=== PATIENT | male | born 1990 | race Caucasian/White ===

== ENCOUNTER 2017-01-03 11:15 | Emergency (ER) | payer SELFPAY ==
[2017-01-03] MEDS ORDERED: Albuterol/Ipratropium 3.0-0.5 MG/3 ML Neb Soln NEB ONE (11:24)
--- NOTE | 2017-01-03 11:24 | EDM.PDOC ---
ED HPI GENERAL MEDICAL PROBLEM - General Stated Complaint: SHORTNESS OF BREATH Time Seen by Provider: 01/03/17 11:20 - History of Present Illness INITIAL COMMENTS - FREE TEXT/NARRATIVE: HISTORY AND PHYSICAL: History of present illness: Patient's a 26-year-old white male with no significant past medical history presents with concern of right-sided chest pain and difficulty breathing he denies fever chills nausea vomiting palpitations or other concern he does have some anxiety related to a family history of lung cancer he denies history of asthma COPD or any other heart or lung problems Review of systems: As per history of present illness and below otherwise all systems reviewed and negative. Past medical history: As per history of present illness and as reviewed below otherwise noncontributory. Surgical history: As per history of present illness and as reviewed below otherwise noncontributory. Social history: No reported history of drug or alcohol abuse. Family history: As per history of present illness and as reviewed below otherwise noncontributory. Physical exam: HEENT: Atraumatic, normocephalic, pupils reactive, negative for conjunctival pallor or scleral icterus, mucous membranes moist, throat clear, neck supple, nontender, trachea midline. Lungs: Clear to auscultation, breath sounds equal bilaterally, chest nontender. Heart: S1S2, regular, negative for clicks, rubs, or JVD. Abdomen: Soft, nondistended, nontender. Negative for masses or hepatosplenomegaly. Negative for costovertebral tenderness. Pelvis: Stable nontender. Genitourinary: Deferred. Rectal: Deferred. Extremities: Atraumatic, negative for cords or calf pain. Neurovascular unremarkable. Neuro: Awake, alert, oriented. Cranial nerves II through XII unremarkable. Cerebellum unremarkable. Motor and sensory unremarkable throughout. Exam nonfocal. Diagnostics: Chest x-ray EKG Therapeutics: Albuterol ipratropium nebulizer Impression: #1 right-sided chest pain (atypical) #2 dyspnea Definitive disposition and diagnosis as appropriate pending reevaluation and review of above. - Related Data Allergies Allergy/AdvReac Type Severity Reaction Status Date / Time No Known Allergies Allergy Verified 01/03/17 11:38 Home Meds: Home Meds . [No Known Home Meds] 01/03/17 [History] ED ROS GENERAL - Review of Systems Review Of Systems: ROS reveals no pertinent complaints other than HPI. ED EXAM, GENERAL - Physical Exam Exam: See Below (See dictation) Course - Vital Signs Last Recorded V/S: Last Vital Signs Temp 36.9 C 01/03/17 11:29 Pulse 95 01/03/17 11:29 Resp 18 01/03/17 11:29 BP 133/84 01/03/17 11:29 Pulse Ox 98 01/03/17 11:29 - Orders/Labs/Meds Orders: Active Orders 24 hr Category Date Time Status EKG Documentation Completion [RC] STAT Care 01/03/17 11:24 Active RT Aerosol Therapy [RC] ASDIRECTED Care 01/03/17 11:25 Active Meds: Medications Discontinued Medications Generic Name Dose Route Start Last Admin Trade Name Freq PRN Reason Stop Dose Admin Albuterol/Ipratropium 3 ml 01/03/17 11:24 01/03/17 11:46 Duoneb 3.0-0.5 Mg/3 Ml NEB 01/03/17 11:25 3 ml ONETIME ONE Administration Departure - Departure Time of Disposition: 13:00 Disposition: Home, Self-Care 01 Condition: Good Clinical Impression: Atypical chest pain, Dyspnea - Discharge Information Referrals: PCP,None [Primary Care Provider] - Additional Instructions: The following information is given to patients seen in the emergency department who are being discharged to home. This information is to outline your options for follow-up care. We provide all patients seen in our emergency department with a follow-up referral. The need for follow-up, as well as the timing and circumstances, are variable depending upon the specifics of your emergency department visit. If you don't have a primary care physician on staff, we will provide you with a referral. We always advise you to contact your personal physician following an emergency department visit to inform them of the circumstance of the visit and for follow-up with them and/or the need for any referrals to a consulting specialist. The emergency department will also refer you to a specialist when appropriate. This referral assures that you have the opportunity for followup care with a specialist. All of these measure are taken in an effort to provide you with optimal care, which includes your followup. Under all circumstances we always encourage you to contact your private physician who remains a resource for coordinating your care. When calling for followup care, please make the office aware that this follow-up is from your recent emergency room visit. If for any reason you are refused follow-up, please contact the [facility] emergency department at and asked to speak to the emergency department charge nurse. MARIE [facility] [address] [place] [id number] Albuterol as prescribed Motrin or Tylenol as directed follow-up primary care and /or clinical bulbous discussed return as needed as discussed - My Orders Last 24 Hours: My Active Orders 01/03/17 11:24 EKG Documentation Completion [RC] STAT 01/03/17 11:25 RT Aerosol Therapy [RC] ASDIRECTED - Assessment/Plan Last 24 Hours: My Active Orders 01/03/17 11:24 EKG Documentation Completion [RC] STAT 01/03/17 11:25 RT Aerosol Therapy [RC] ASDIRECTED
--- NOTE | 2017-01-03 12:30 | CR ---
EXAMINATION: Two-view chest (PA and Lateral views). HISTORY: Shortness of breath. FINDINGS: The trachea is midline. The cardiomediastinal silhouette is within normal limits. No pulmonary infilt rates, effusions or pneumothorax. Osseous structures appear unremarkable. IMPRESSION: No acute cardiopulmonary process.
[2017-01-03 13:08] VITALS: BP 121/69
== END 2017-01-03 13:07 | disposition home or self-care (01) ==
LOC: MW.ED 11:15
DX: R07.89 Other chest pain (principal); R06.00 Dyspnea, unspecified
CPT/HCPCS: 71020; 71020-26; 93005; 94664; 99282; 99283-25

== ENCOUNTER 2017-01-27 03:43 | Emergency (ER) | payer SELFPAY ==
[2017-01-27] MEDS ORDERED: Acetaminophen/oxyCODONE 325-10 MG Tab PO ONE (04:07)
[2017-01-27] MEDS ORDERED: Amoxicillin 500 MG Cap PO ONE (04:08)
[2017-01-27 04:09] VITALS: BP 138/80
--- NOTE | 2017-01-27 04:12 | EDM.PDOC ---
ED HPI GENERAL MEDICAL PROBLEM - General Chief Complaint: General Stated Complaint: ABSCESSED TOOTH Time Seen by Provider: 01/27/17 04:08 Source of Information: Reports: Patient, RN - History of Present Illness INITIAL COMMENTS - FREE TEXT/NARRATIVE: recent toothache. - Related Data Allergies Allergy/AdvReac Type Severity Reaction Status Date / Time No Known Allergies Allergy Verified 01/27/17 03:54 Home Meds: Home Meds . [No Known Home Meds] 01/03/17 [History] Past Medical History - Past Health History Medical/Surgical History: Denies Medical/Surgical History - Infectious Disease History Infectious Disease History: Reports: Chicken Pox Social & Family History - Family History Family Medical History: Noncontributory - Tobacco Use Smoking Status *Q: Current Every Day Smoker Years of Tobacco use: 15 Packs/Tins Daily: 1 Used Tobacco, but Quit: No Second Hand Smoke Exposure: No - Caffeine Use Caffeine Use: Reports: Coffee - Recreational Drug Use Recreational Drug Use: No ED ROS GENERAL - Review of Systems Review Of Systems: See Below Constitutional: Denies: Fever Cardiovascular: Denies: Chest Pain GI/Abdominal: Denies: Vomiting ED EXAM, GENERAL - Physical Exam Exam: See Below Free Text/Narrative:: alert tooth number 13 with marked decay and tenderness no airway compromise Course - Orders/Labs/Meds Orders: Active Orders 24 hr Category Date Time Status Acetaminophen/oxyCODONE [Percocet 325-10 MG] Med 01/27/17 04:07 Once 1 tab PO ONETIME ONE Amoxicillin [Amoxil] Med 01/27/17 04:08 Once 500 mg PO ONETIME ONE Medication Orders Amoxicillin (Amoxil) 500 mg PO ONETIME ONE Stop: 01/27/17 04:09 Oxycodone/Acetaminophen (Percocet 325-10 Mg) 1 tab PO ONETIME ONE Stop: 01/27/17 04:08 Meds: Medications Generic Name Dose Route Start Last Admin Trade Name Freq PRN Reason Stop Dose Admin Amoxicillin 500 mg 01/27/17 04:08 Amoxil PO 01/27/17 04:09 ONETIME ONE Oxycodone/Acetaminophen 1 tab 01/27/17 04:07 Percocet 325-10 Mg PO 01/27/17 04:08 ONETIME ONE Departure - Departure Time of Disposition: 04:10 Disposition: Home, Self-Care 01 Condition: Fair Clinical Impression: Pain, dental - Discharge Information Referrals: PCP,None [Primary Care Provider] - Additional Instructions: percocet is for short term use as it may be habit forming, sedating and constipating do not use tylenol with percocet see a dentist - My Orders Last 24 Hours: My Active Orders 01/27/17 04:07 Acetaminophen/oxyCODONE [Percocet 325-10 MG] 1 tab PO ONETIME ONE 01/27/17 04:08 Amoxicillin [Amoxil] 500 mg PO ONETIME ONE - Assessment/Plan Last 24 Hours: My Active Orders 01/27/17 04:07 Acetaminophen/oxyCODONE [Percocet 325-10 MG] 1 tab PO ONETIME ONE 01/27/17 04:08 Amoxicillin [Amoxil] 500 mg PO ONETIME ONE
== END 2017-01-27 04:45 | disposition home or self-care (01) ==
LOC: MW.ED 03:43
DX: K08.89 Other specified disorders of teeth and supporting structures (principal); F17.210 Nicotine dependence, cigarettes, uncomplicated
CPT/HCPCS: 99282; A9270; 99281

== ENCOUNTER 2017-03-25 00:44 | Emergency (ER) | payer SELFPAY ==
[2017-03-25] MEDS ORDERED: Sodium Chloride 0.9% 2.5 ML Syringe FLUSH PRN (01:10)
[2017-03-25] MEDS ORDERED: methylPREDNISolone Sodium Succinate 125 MG/2 ML SDV IVPUSH ONE (01:10)
[2017-03-25] MEDS ORDERED: Sodium Chloride 0.9% 10 ML Syringe FLUSH PRN (01:10)
[2017-03-25] MEDS ORDERED: Ketorolac 30 MG/ML SDV IVPUSH ONE (01:10)
--- NOTE | 2017-03-25 01:15 | EDM.PDOC ---
ED HPI GENERAL MEDICAL PROBLEM - General Chief Complaint: Back Pain or Injury Stated Complaint: LOWER BACK PAIN Time Seen by Provider: 03/25/17 01:00 - History of Present Illness INITIAL COMMENTS - FREE TEXT/NARRATIVE: HISTORY AND PHYSICAL: History of present illness: The patient is a 27-year-old male who works doing a lot of lifting and was at work this evening when he bent over and felt sudden pain in his lower lumbar spine and thought he felt a "pop like" sensation. The patient has a history of herniated disks in the past for which he was treated with pain meds physical therapy and no surgical intervention. He has been doing well for the last 2 years with respect to that injury. He also has a history of a trauma several years ago but has been doing well from that perspective as well. The patient did not fall or lose his balance tonight he just bent over and felt the pain. Early in the day he had no systemic complaints and he has no abdominal pain no neurosensory changes in his legs no bowel or bladder disturbances and received no pain medication prior to coming here. The patient says the pain is localized in the lower aspect of his lumbar back and does not radiate to his butt or his legs. The patient did not pass out or black out and has no upper back flank pain or neck pain. The patient does admit that with his job involving lifting and moving things he doesn't always practice good body mechanics and he likely overuses his back. Review of systems: As per history of present illness and below otherwise all systems reviewed and negative. Past medical history: As per history of present illness and as reviewed below otherwise noncontributory. Surgical history: As per history of present illness and as reviewed below otherwise noncontributory. Social history: No reported history of drug or alcohol abuse. Family history: As per history of present illness and as reviewed below otherwise noncontributory. Physical exam: Gen.: Well-developed well-nourished man who is mildly overweight and is uncomfortable with movement But can move in the bed without difficulty HEENT: Atraumatic, normocephalic, negative for conjunctival pallor or scleral icterus, mucous membranes moist, throat clear, neck supple, nontender, trachea midline. Lungs: Clear to auscultation, breath sounds equal bilaterally, chest nontender. Heart: S1S2, regular rate and rhythm no overt murmurs Abdomen: Soft, nondistended, nontender. Negative for masses or hepatosplenomegaly. Negative for costovertebral tenderness. Pelvis: Stable nontender. Genitourinary: Deferred. Rectal: Deferred. Extremities: Atraumatic, negative for cords or calf pain. Neurovascular unremarkable. Full range of motion without defects or deficits Neuro: Awake, alert, oriented. Cranial nerves II through XII unremarkable. Cerebellum unremarkable. Motor and sensory unremarkable throughout. Exam nonfocal. Dorsi and plantar flexion is intact 5/5 inclusive of the great toe inversion and eversion of the feet is intact Back: There are no midline step-offs in his defects of the thoracic or lumbar spine no posterior pelvis tenderness and on palpation it is difficult to reproduce the pain at all. There is no soft tissue swelling or skin changes appreciated. Diagnostics: CT scan of the lumbar spine Therapeutics: IV, Toradol, Solu-Medrol Zofran Dilaudid Patient says she is feeling much improved and I'll give her prescriptions that he can fill later as he would prefer not to use [facility]. I told him that he needs to follow-up with his occupational health person at his job as his injury occurred at work. Advised on reasons to return Impression: Acute lumbar back pain with history of same and disc disease Definitive disposition and diagnosis as appropriate pending reevaluation and review of above. lower back Pain Score (Numeric/FACES): 8 - Related Data Allergies Allergy/AdvReac Type Severity Reaction Status Date / Time No Known Allergies Allergy Verified 03/25/17 01:00 Home Meds: Home Meds . [No Known Home Meds] 01/03/17 [History] Past Medical History - Past Health History Medical/Surgical History: Denies Medical/Surgical History HEENT History: Reports: None Cardiovascular History: Reports: None Respiratory History: Reports: None Gastrointestinal History: Reports: None Genitourinary History: Reports: None Musculoskeletal History: Reports: None Neurological History: Reports: None Psychiatric History: Reports: None Endocrine/Metabolic History: Reports: None Hematologic History: Reports: None Immunologic History: Reports: None Oncologic (Cancer) History: Reports: None Dermatologic History: Reports: None - Infectious Disease History Infectious Disease History: Reports: None - Past Surgical History Head Surgeries/Procedures: Reports: None Social & Family History - Family History Family Medical History: Noncontributory - Tobacco Use Smoking Status *Q: Current Every Day Smoker Years of Tobacco use: 15 Packs/Tins Daily: 0.4 Used Tobacco, but Quit: No Second Hand Smoke Exposure: No - Caffeine Use Caffeine Use: Reports: Coffee, Energy Drinks - Recreational Drug Use Recreational Drug Use: No ED ROS GENERAL - Review of Systems Review Of Systems: ROS reveals no pertinent complaints other than HPI. ED EXAM, GENERAL - Physical Exam Exam: See Below (See dictation) Course - Vital Signs Last Recorded V/S: Last Vital Signs Temp 36.1 C 03/25/17 01:00 Pulse 102 H 03/25/17 01:00 Resp 18 03/25/17 01:00 BP 117/83 03/25/17 01:00 Pulse Ox 98 03/25/17 01:00 - Orders/Labs/Meds Orders: Active Orders 24 hr Category Date Time Status Lumbar Spine wo Cont [CT] Stat Exams 03/25/17 01:10 Taken Sodium Chloride 0.9% [Saline Flush] Med 03/25/17 01:10 Active 10 ml FLUSH ASDIRECTED PRN Sodium Chloride 0.9% [Saline Flush] Med 03/25/17 01:10 Active 2.5 ml FLUSH ASDIRECTED PRN Saline Lock Insert [OM.PC] Stat Oth 03/25/17 01:10 Ordered Medication Orders Sodium Chloride (Saline Flush) 10 ml FLUSH ASDIRECTED PRN PRN Reason: Keep Vein Open Last Admin: 03/25/17 01:33 Dose: 10 ml Sodium Chloride (Saline Flush) 2.5 ml FLUSH ASDIRECTED PRN PRN Reason: Keep Vein Open Last Admin: 03/25/17 01:34 Dose: 2.5 ml Meds: Medications Generic Name Dose Route Start Last Admin Trade Name Freq PRN Reason Stop Dose Admin Sodium Chloride 10 ml 03/25/17 01:10 03/25/17 01:33 Saline Flush FLUSH 10 ml ASDIRECTED PRN Administration Keep Vein Open Sodium Chloride 2.5 ml 03/25/17 01:10 03/25/17 01:34 Saline Flush FLUSH 2.5 ml ASDIRECTED PRN Administration Keep Vein Open Discontinued Medications Generic Name Dose Route Start Last Admin Trade Name Freq PRN Reason Stop Dose Admin Hydromorphone HCl 1 mg 03/25/17 01:16 03/25/17 01:32 Dilaudid IVPUSH 03/25/17 01:17 1 mg ONETIME ONE Administration Ketorolac Tromethamine 30 mg 03/25/17 01:10 03/25/17 01:32 Toradol IVPUSH 03/25/17 01:11 30 mg ONETIME ONE Administration Methylprednisolone Sodium Succinate 125 mg 03/25/17 01:10 03/25/17 01:32 Solu-Medrol IVPUSH 03/25/17 01:11 125 mg ONETIME ONE Administration Ondansetron HCl 4 mg 03/25/17 01:33 03/25/17 01:36 Zofran IVPUSH 03/25/17 01:34 4 mg ONETIME ONE Administration Departure - Departure Time of Disposition: 02:40 Disposition: Home, Self-Care 01 Condition: Good Clinical Impression: Acute low back pain Qualifiers: Back pain laterality: bilateral Sciatica presence: without sciatica Qualified Code(s): M54.5 - Low back pain - Discharge Information Referrals: PCP,None [Primary Care Provider] - Forms: ED Department Discharge Additional Instructions: The following information is given to patients seen in the emergency department who are being discharged to home. This information is to outline your options for follow-up care. We provide all patients seen in our emergency department with a follow-up referral. The need for follow-up, as well as the timing and circumstances, are variable depending upon the specifics of your emergency department visit. If you don't have a primary care physician on staff, we will provide you with a referral. We always advise you to contact your personal physician following an emergency department visit to inform them of the circumstance of the visit and for follow-up with them and/or the need for any referrals to a consulting specialist. The emergency department will also refer you to a specialist when appropriate. This referral assures that you have the opportunity for followup care with a specialist. All of these measure are taken in an effort to provide you with optimal care, which includes your followup. Under all circumstances we always encourage you to contact your private physician who remains a resource for coordinating your care. When calling for followup care, please make the office aware that this follow-up is from your recent emergency room visit. If for any reason you are refused follow-up, please contact the [facility] emergency department at and ask to speak to the emergency department charge nurse. MARIE [facility] Primary care- Internal Medicine and Family [facility] [address] [place] [address] Please use medications as prescribed. Do not Muscle relaxer, Norflex, and the Putnam. Try to use the Putnam mostly at sleep time. If you use the Putnam or Norflex please only take them when you're at home as they may make you drowsy or sleepy. Rest and try to do all activities very slowly. Apply heat or ice to the area as tolerated and needed. Please contact your employer for follow-up with occupational health with respect to your work. Return to ER as needed and as discussed - My Orders Last 24 Hours: My Active Orders 03/25/17 01:10 Lumbar Spine wo Cont [CT] Stat Sodium Chloride 0.9% [Saline Flush] 10 ml FLUSH ASDIRECTED PRN Sodium Chloride 0.9% [Saline Flush] 2.5 ml FLUSH ASDIRECTED PRN Saline Lock Insert [OM.PC] Stat - Assessment/Plan Last 24 Hours: My Active Orders 03/25/17 01:10 Lumbar Spine wo Cont [CT] Stat Sodium Chloride 0.9% [Saline Flush] 10 ml FLUSH ASDIRECTED PRN Sodium Chloride 0.9% [Saline Flush] 2.5 ml FLUSH ASDIRECTED PRN Saline Lock Insert [OM.PC] Stat
[2017-03-25] MEDS ORDERED: HYDROmorphone 2 MG/ML Syringe IVPUSH ONE (01:16)
[2017-03-25] MEDS ORDERED: Ondansetron 4 MG/2 ML SDV IVPUSH ONE (01:33)
[2017-03-25 03:10] VITALS: BP 124/78
--- NOTE | 2017-03-27 11:02 | CT ---
EXAM DATE: 03/25/17 PATIENT'S AGE: 27 Patient: SANDHYA NEVAREZ Facility: [place], [place] Site . Site : 1990 Study: CT Spine Lumbar [id number]/18/2017 2:01:12 AM Ordering Physician: Staci Day Final Report: INDICATION: Low back pain TECHNIQUE: CT lumbar spine without i.v. contrast. Coronal and sagittal reformats were obtained. COMPARISON: None FINDINGS: Vertebral alignment: Alignment is normal. Vertebrae: No acute fractures or aggressive osseous lesions are identified. Bone island in the left sacrum, series 203, image 91. Discs and facet joints: Disc spaces are within normal limits. The facet joints are unremarkable in appearance. Extraspinal findings: Prevertebral soft tissues and visualized retroperitoneum are unremarkable. IMPRESSION: 1. Negative study. Dictated by Howard Mcfadden MD @ 03/25/2017 2:28:05 AM Dictated by: Howard Mcfadden MD @ 03/25/2017 02:28:13 (Electronic Signature) Report Signed by Proxy. [facility]
== END 2017-03-25 03:24 | disposition home or self-care (01) ==
LOC: MW.ED 00:44
DX: M54.5 Low back pain (principal); F17.210 Nicotine dependence, cigarettes, uncomplicated
CPT/HCPCS: 72131; 96374; 96375; 99283; J1170; J1885; J2405; J2930; 99284

== ENCOUNTER 2017-04-16 00:29 | Emergency (ER) | payer SELFPAY ==
[2017-04-16] MEDS ORDERED: Amoxicillin 500 MG Cap PO ONE (00:47)
[2017-04-16] MEDS ORDERED: Acetaminophen/HYDROcodone 325-7.5 MG Tab PO ONE (00:47)
[2017-04-16] MEDS ORDERED: Lidocaine 2% Viscous Solution 15 ML Cup PO ONE (00:47)
[2017-04-16] MEDS ORDERED: Benzocaine 20% Topical Spray UD MUCMEM ONE (00:47)
--- NOTE | 2017-04-16 00:51 | EDM.PDOC ---
ED HPI GENERAL MEDICAL PROBLEM - General Chief Complaint: ENT Problem Stated Complaint: POSSIBLE INFECTION IN TOOTH ON LT SIDE Time Seen by Provider: 04/16/17 00:43 - History of Present Illness INITIAL COMMENTS - FREE TEXT/NARRATIVE: HISTORY AND PHYSICAL: History of present illness: The patient is a 27-year-old male with a known history of dental problems on the left upper side who presents with recurrent pain and swelling to that dental area. Patient says he has had this in the past and came here and he got better but he did not seek definitive treatment. He says the pain is traveling up to his eye his for head and to his ear. He has no fevers or chills. Review of systems: As per history of present illness and below otherwise all systems reviewed and negative. Past medical history: As per history of present illness and as reviewed below otherwise noncontributory. Surgical history: As per history of present illness and as reviewed below otherwise noncontributory. Social history: No reported history of drug or alcohol abuse. Family history: As per history of present illness and as reviewed below otherwise noncontributory. Physical exam: HEENT: Atraumatic, normocephalic, pupils reactive, negative for conjunctival pallor or scleral icterus, mucous membranes moist, throat clear, neck supple, nontender, trachea midline. There are multiple areas of dental disease the most noteworthy is the left upper premolar and molar area where there are multiple caries and gum swelling but no fluctuance. Is no gross swelling of the face but there is tenderness. There is no cervical adenopathy Lungs: Clear to auscultation, breath sounds equal bilaterally, chest nontender. Heart: S1S2, regular rate and rhythm no overt murmurs Abdomen: Soft, nondistended, nontender. Nabs Pelvis: Deferred Genitourinary: Deferred. Rectal: Deferred. Extremities: Atraumatic, negative for cords or calf pain. Neurovascular unremarkable. Neuro: Awake, alert, oriented. Cranial nerves II through XII unremarkable. Cerebellum unremarkable. Motor and sensory unremarkable throughout. Exam nonfocal. Diagnostics: [] Therapeutics: Dental balls, [place], amoxicillin Impression: Dental pain dental infection Definitive disposition and diagnosis as appropriate pending reevaluation and review of above. Oral/Mouth Pain Score (Numeric/FACES): 9 - Related Data Allergies Allergy/AdvReac Type Severity Reaction Status Date / Time No Known Allergies Allergy Verified 04/16/17 00:38 Home Meds: Home Meds . [No Known Home Meds] 01/03/17 [History] Past Medical History - Past Health History Medical/Surgical History: Denies Medical/Surgical History HEENT History: Reports: None Cardiovascular History: Reports: None Respiratory History: Reports: None Gastrointestinal History: Reports: None Genitourinary History: Reports: None Musculoskeletal History: Reports: None Neurological History: Reports: None Psychiatric History: Reports: None Endocrine/Metabolic History: Reports: None Hematologic History: Reports: None Immunologic History: Reports: None Oncologic (Cancer) History: Reports: None Dermatologic History: Reports: None - Infectious Disease History Infectious Disease History: Reports: Chicken Pox - Past Surgical History Head Surgeries/Procedures: Reports: None Social & Family History - Family History Family Medical History: Noncontributory - Tobacco Use Smoking Status *Q: Former Smoker Years of Tobacco use: 15 Packs/Tins Daily: 0.4 Used Tobacco, but Quit: Yes Month Tobacco Last Used: 02/2017 Second Hand Smoke Exposure: No - Caffeine Use Caffeine Use: Reports: Coffee, Energy Drinks, Soda - Recreational Drug Use Recreational Drug Use: Yes Drug Use in Last 12 Months: No Recreational Drug Type: Reports: Marijuana/Hashish ED ROS GENERAL - Review of Systems Review Of Systems: ROS reveals no pertinent complaints other than HPI. ED EXAM, GENERAL - Physical Exam Exam: See Below (See dictation) Course - Vital Signs Last Recorded V/S: Last Vital Signs Temp 36.6 C 04/16/17 00:36 Pulse 115 H 04/16/17 00:36 Resp 12 04/16/17 00:36 BP 136/87 04/16/17 00:36 Pulse Ox 99 04/16/17 00:36 - Orders/Labs/Meds Orders: Active Orders 24 hr Category Date Time Status Amoxicillin [Amoxil] Med 04/16/17 00:47 Once 500 mg PO ONETIME ONE Meds: Medications Discontinued Medications Generic Name Dose Route Start Last Admin Trade Name Freq PRN Reason Stop Dose Admin Hydrocodone Bitart/Acetaminophen 1 tab 04/16/17 00:47 [place] 325-7.5 Mg PO 04/16/17 00:48 ONETIME ONE Benzocaine 2 each 04/16/17 00:47 Hurricaine One 20% MUCMEM 04/16/17 00:48 ONETIME ONE Lidocaine HCl 15 ml 04/16/17 00:47 Xylocaine 2% Viscous PO 04/16/17 00:48 ONETIME ONE Departure - Departure Time of Disposition: 00:50 Disposition: Home, Self-Care 01 Condition: Good Clinical Impression: Pain, dental, Dental infection - Discharge Information Referrals: PCP,None [Primary Care Provider] - Additional Instructions: The following information is given to patients seen in the emergency department who are being discharged to home. This information is to outline your options for follow-up care. We provide all patients seen in our emergency department with a follow-up referral. The need for follow-up, as well as the timing and circumstances, are variable depending upon the specifics of your emergency department visit. If you don't have a primary care physician on staff, we will provide you with a referral. We always advise you to contact your personal physician following an emergency department visit to inform them of the circumstance of the visit and for follow-up with them and/or the need for any referrals to a consulting specialist. The emergency department will also refer you to a specialist when appropriate. This referral assures that you have the opportunity for followup care with a specialist. All of these measure are taken in an effort to provide you with optimal care, which includes your followup. Under all circumstances we always encourage you to contact your private physician who remains a resource for coordinating your care. When calling for followup care, please make the office aware that this follow-up is from your recent emergency room visit. If for any reason you are refused follow-up, please contact the [facility] emergency department at and ask to speak to the emergency department charge nurse. [facility] Primary care- Internal Medicine and Family [address] [address] Use ice to face for any swelling and use dental balls as shown and given to you in the ER. Please fill your prescriptions for antibiotics and pain medication also use [id number] Motrin or ibuprofen please call and follow-up with a dentist for definitive care and return to ER as needed and as discussed - My Orders Last 24 Hours: My Active Orders 04/16/17 00:47 Amoxicillin [Amoxil] 500 mg PO ONETIME ONE - Assessment/Plan Last 24 Hours: My Active Orders 04/16/17 00:47 Amoxicillin [Amoxil] 500 mg PO ONETIME ONE
[2017-04-16 01:39] VITALS: BP 130/80
== END 2017-04-16 01:10 | disposition home or self-care (01) ==
LOC: MW.ED 00:29
DX: K04.7 Periapical abscess without sinus (principal); Z87.891 Personal history of nicotine dependence
CPT/HCPCS: 99282; A9270; 99283

== ENCOUNTER 2017-05-13 09:28 | Emergency (ER) | payer SELFPAY ==
[2017-05-13] MEDS ORDERED: Sodium Chloride 0.9% 2.5 ML Syringe FLUSH PRN (10:02)
[2017-05-13] MEDS ORDERED: Ketorolac 30 MG/ML SDV IVPUSH ONE (10:02)
[2017-05-13] MEDS ORDERED: Clindamycin Phosphate in D5W 600 MG in Premix Bag 50 BAG IV ONE ×2 (10:02)
[2017-05-13] MEDS ORDERED: Sodium Chloride 0.9% 10 ML Syringe FLUSH PRN (10:02)
--- NOTE | 2017-05-13 10:05 | EDM.PDOC ---
ED HPI GENERAL MEDICAL PROBLEM - General Chief Complaint: Respiratory Problem Stated Complaint: COUGH Time Seen by Provider: 05/13/17 09:40 Source of Information: Reports: Patient History Limitations: Reports: No Limitations - History of Present Illness INITIAL COMMENTS - FREE TEXT/NARRATIVE: History of present illness: []Patient has chronic dental pain and noticed pain in his left cheek yesterday. Patient states he was diagnosed with a dental abscess last month and put on antibiotics and this morning states that it feels worse. He stated he has felt feverish and noted drainage from his gums this morning after brushing his teeth. Review of systems: As per history of present illness and below otherwise all systems reviewed and negative. Past medical history: As per history of present illness and as reviewed below otherwise noncontributory. Surgical history: As per history of present illness and as reviewed below otherwise noncontributory. Social history: No reported history of drug or alcohol abuse. Family history: As per history of present illness and as reviewed below otherwise noncontributory. Physical exam: General: Well developed, well nourished in NAD HEENT: Atraumatic, normocephalic, pupils reactive, negative for conjunctival pallor or scleral icterus, mucous membranes moist, throat clear, neck supple, nontender, trachea midline. Lungs: Clear to auscultation, breath sounds equal bilaterally, chest nontender. Heart: S1S2, regular, negative for clicks, rubs, or JVD. Abdomen: Soft, nondistended, nontender. Negative for masses or hepatosplenomegaly. Negative for costovertebral tenderness. Pelvis: Stable nontender. Genitourinary: Deferred. Rectal: Deferred. Extremities: Atraumatic, negative for cords or calf pain. Neurovascular unremarkable. Neuro: Awake, alert, oriented. Cranial nerves II through XII unremarkable. Cerebellum unremarkable. Motor and sensory unremarkable throughout. Exam nonfocal. Diagnostics: [] Therapeutics: [] Impression: [] Plan: [] Definitive disposition and diagnosis as appropriate pending reevaluation and review of above. Left Upper Dental Pain Score (Numeric/FACES): 8 - Related Data Allergies Allergy/AdvReac Type Severity Reaction Status Date / Time No Known Allergies Allergy Verified 05/13/17 09:40 Home Meds: Home Meds Clindamycin HCl [Cleocin HCl] 300 mg PO TID #30 capsule 05/13/17 [Rx] Past Medical History - Past Health History Medical/Surgical History: Denies Medical/Surgical History HEENT History: Reports: None Cardiovascular History: Reports: None Respiratory History: Reports: None Gastrointestinal History: Reports: None Genitourinary History: Reports: None Musculoskeletal History: Reports: None Neurological History: Reports: None Psychiatric History: Reports: None Endocrine/Metabolic History: Reports: None Hematologic History: Reports: None Immunologic History: Reports: None Oncologic (Cancer) History: Reports: None Dermatologic History: Reports: None - Infectious Disease History Infectious Disease History: Reports: Chicken Pox - Past Surgical History Head Surgeries/Procedures: Reports: None Social & Family History - Family History Family Medical History: Noncontributory - Tobacco Use Smoking Status *Q: Current Every Day Smoker Years of Tobacco use: 15 Packs/Tins Daily: 1 Used Tobacco, but Quit: Yes Month Tobacco Last Used: 02/2017 Second Hand Smoke Exposure: No - Caffeine Use Caffeine Use: Reports: Coffee, Energy Drinks, Soda - Recreational Drug Use Recreational Drug Use: No Drug Use in Last 12 Months: No Recreational Drug Type: Reports: Marijuana/Hashish ED ROS GENERAL - Review of Systems Review Of Systems: See Below (See history of present illness) ED EXAM, GENERAL - Physical Exam Exam: See Below (See history of present illness) Course - Vital Signs Last Recorded V/S: Last Vital Signs Temp 97.4 F 05/13/17 11:33 Pulse 88 05/13/17 11:33 Resp 18 05/13/17 11:33 BP 118/78 05/13/17 11:33 Pulse Ox 98 05/13/17 11:33 - Orders/Labs/Meds Orders: Active Orders 24 hr Category Date Time Status Sodium Chloride 0.9% [Saline Flush] Med 05/13/17 10:02 Active 10 ml FLUSH ASDIRECTED PRN Sodium Chloride 0.9% [Saline Flush] Med 05/13/17 10:02 Active 2.5 ml FLUSH ASDIRECTED PRN Saline Lock Insert [OM.PC] Stat Oth 05/13/17 10:01 Ordered Medication Orders Sodium Chloride (Saline Flush) 10 ml FLUSH ASDIRECTED PRN PRN Reason: Keep Vein Open Last Admin: 05/13/17 10:52 Dose: 10 ml Sodium Chloride (Saline Flush) 2.5 ml FLUSH ASDIRECTED PRN PRN Reason: Keep Vein Open Last Admin: 05/13/17 10:52 Dose: 2.5 ml Meds: Medications Generic Name Dose Route Start Last Admin Trade Name Grant PRN Reason Stop Dose Admin Sodium Chloride 10 ml 05/13/17 10:02 05/13/17 10:52 Saline Flush FLUSH 10 ml ASDIRECTED PRN Administration Keep Vein Open Sodium Chloride 2.5 ml 05/13/17 10:02 05/13/17 10:52 Saline Flush FLUSH 2.5 ml ASDIRECTED PRN Administration Keep Vein Open Discontinued Medications Generic Name Dose Route Start Last Admin Trade Name Victorianoq PRN Reason Stop Dose Admin Clindamycin Phosphate 600 mg/ 50 mls @ 100 mls/hr 05/13/17 10:02 05/13/17 10: 49 Premix IV 05/13/17 10:31 100 mls/hr ONETIME ONE Administration Ketorolac Tromethamine 30 mg 05/13/17 10:02 05/13/17 10:49 Toradol IVPUSH 05/13/17 10:03 30 mg ONETIME ONE Administration Departure - Departure Time of Disposition: 11:19 Disposition: Home, Self-Care 01 Condition: Good Clinical Impression: Dental abscess - Discharge Information Prescriptions: Clindamycin HCl [Cleocin HCl] 300 mg PO TID #30 capsule Instructions: Dental Abscess, [id number] Referrals: PCP,None [Primary Care Provider] - Forms: ED Department Discharge Additional Instructions: The following information is given to patients seen in the emergency department who are being discharged to home. This information is to outline your options for follow-up care. We provide all patients seen in our emergency department with a follow-up referral. The need for follow-up, as well as the timing and circumstances, are variable depending upon the specifics of your emergency department visit. If you don't have a primary care physician on staff, we will provide you with a referral. We always advise you to contact your personal physician following an emergency department visit to inform them of the circumstance of the visit and for follow-up with them and/or the need for any referrals to a consulting specialist. The emergency department will also refer you to a specialist when appropriate. This referral assures that you have the opportunity for follow-up care with a specialist. All of these measure are taken in an effort to provide you with optimal care, which includes your follow-up. Under all circumstances we always encourage you to contact your private physician who remains a resource for coordinating your care. When calling for follow-up care, please make the office aware that this follow-up is from your recent emergency room visit. If for any reason you are refused follow-up, please contact the [facility] Emergency Department at and asked to speak to the emergency department charge nurse. Clindamycin 3 times a day for 10 days, ibuprofen Tylenol for pain follow-up with dentist or PMD for pain control. [facility] Primary Care [address] [place] [address] - My Orders Last 24 Hours: My Active Orders 05/13/17 10:01 Saline Lock Insert [OM.PC] Stat 05/13/17 10:02 Sodium Chloride 0.9% [Saline Flush] 10 ml FLUSH ASDIRECTED PRN Sodium Chloride 0.9% [Saline Flush] 2.5 ml FLUSH ASDIRECTED PRN - Assessment/Plan Last 24 Hours: My Active Orders 05/13/17 10:01 Saline Lock Insert [OM.PC] Stat 05/13/17 10:02 Sodium Chloride 0.9% [Saline Flush] 10 ml FLUSH ASDIRECTED PRN Sodium Chloride 0.9% [Saline Flush] 2.5 ml FLUSH ASDIRECTED PRN
[2017-05-13 11:34] VITALS: BP 118/78
== END 2017-05-13 11:43 | disposition home or self-care (01) ==
LOC: MW.ED 09:28
DX: K04.7 Periapical abscess without sinus (principal); F17.210 Nicotine dependence, cigarettes, uncomplicated
CPT/HCPCS: 96365; 96375; 99283; J1885

== ENCOUNTER 2017-06-03 00:20 | Emergency (ER) | payer SELFPAY ==
--- NOTE | 2017-06-03 00:33 | EDM.PDOC ---
ED HPI GENERAL MEDICAL PROBLEM - General Stated Complaint: RASH Time Seen by Provider: 06/03/17 00:29 - History of Present Illness INITIAL COMMENTS - FREE TEXT/NARRATIVE: HISTORY AND PHYSICAL: History of present illness: Patient 27-year-old white male presents with a concern of pruritic rash on his thorax this is in his axilla bilaterally and left and right chest in proximity to his axilla no shortness breath or lip swelling or other concern Review of systems: As per history of present illness and below otherwise all systems reviewed and negative. Past medical history: As per history of present illness and as reviewed below otherwise noncontributory. Surgical history: As per history of present illness and as reviewed below otherwise noncontributory. Social history: No reported history of drug or alcohol abuse. Family history: As per history of present illness and as reviewed below otherwise noncontributory. Physical exam: HEENT: Atraumatic, normocephalic, pupils reactive, negative for conjunctival pallor or scleral icterus, mucous membranes moist, throat clear, neck supple, nontender, trachea midline. Lungs: Clear to auscultation, breath sounds equal bilaterally, chest nontender. Heart: S1S2, regular, negative for clicks, rubs, or JVD. Abdomen: Soft, nondistended, nontender. Negative for masses or hepatosplenomegaly. Negative for costovertebral tenderness. Pelvis: Stable nontender. Genitourinary: Deferred. Rectal: Deferred. Extremities: Atraumatic, negative for cords or calf pain. Neurovascular unremarkable. Neuro: Awake, alert, oriented. Cranial nerves II through XII unremarkable. Cerebellum unremarkable. Motor and sensory unremarkable throughout. Exam nonfocal. Skin: Patient is a maculopapular type rash in his axilla extending to his left and right anteroaxillary region of his chest Diagnostics: None Therapeutics: None Impression: #1 rash #2 probable allergic dermatitis Definitive disposition and diagnosis as appropriate pending reevaluation and review of above. - Related Data Allergies Allergy/AdvReac Type Severity Reaction Status Date / Time No Known Allergies Allergy Verified 05/13/17 09:40 Home Meds: Home Meds Clindamycin HCl [Cleocin HCl] 300 mg PO TID #30 capsule 05/13/17 [Rx] Past Medical History - Past Health History Medical/Surgical History: Denies Medical/Surgical History HEENT History: Reports: None Cardiovascular History: Reports: None Respiratory History: Reports: None Gastrointestinal History: Reports: None Genitourinary History: Reports: None Musculoskeletal History: Reports: None Neurological History: Reports: None Psychiatric History: Reports: None Endocrine/Metabolic History: Reports: None Hematologic History: Reports: None Immunologic History: Reports: None Oncologic (Cancer) History: Reports: None Dermatologic History: Reports: None - Infectious Disease History Infectious Disease History: Reports: Chicken Pox - Past Surgical History Head Surgeries/Procedures: Reports: None Social & Family History - Family History Family Medical History: Noncontributory - Tobacco Use Smoking Status *Q: Current Every Day Smoker Years of Tobacco use: 15 Packs/Tins Daily: 1 Used Tobacco, but Quit: Yes Month Tobacco Last Used: 02/2017 Second Hand Smoke Exposure: No - Caffeine Use Caffeine Use: Reports: Coffee, Energy Drinks, Soda - Recreational Drug Use Recreational Drug Use: No Drug Use in Last 12 Months: No Recreational Drug Type: Reports: Marijuana/Hashish ED ROS GENERAL - Review of Systems Review Of Systems: ROS reveals no pertinent complaints other than HPI. ED EXAM, GENERAL - Physical Exam Exam: See Below (See dictation) Departure - Departure Time of Disposition: 00:32 Disposition: Home, Self-Care 01 Condition: Good Clinical Impression: Rash - Discharge Information Referrals: PCP,None [Primary Care Provider] - Additional Instructions: The following information is given to patients seen in the emergency department who are being discharged to home. This information is to outline your options for follow-up care. We provide all patients seen in our emergency department with a follow-up referral. The need for follow-up, as well as the timing and circumstances, are variable depending upon the specifics of your emergency department visit. If you don't have a primary care physician on staff, we will provide you with a referral. We always advise you to contact your personal physician following an emergency department visit to inform them of the circumstance of the visit and for follow-up with them and/or the need for any referrals to a consulting specialist. The emergency department will also refer you to a specialist when appropriate. This referral assures that you have the opportunity for followup care with a specialist. All of these measure are taken in an effort to provide you with optimal care, which includes your followup. Under all circumstances we always encourage you to contact your private physician who remains a resource for coordinating your care. When calling for followup care, please make the office aware that this follow-up is from your recent emergency room visit. If for any reason you are refused follow-up, please contact the [facility] emergency department at and asked to speak to the emergency department charge nurse. [facility] Primary Care [facility] [place] [id number] Medrol Benadryl as prescribed avoid possible allergens including new detergents and/or antiperspirants return as needed as discussed
[2017-06-03 00:34] VITALS: BP 131/78
== END 2017-06-03 00:40 | disposition home or self-care (01) ==
LOC: MW.ED 00:20
DX: R21 Rash and other nonspecific skin eruption (principal); F17.210 Nicotine dependence, cigarettes, uncomplicated
CPT/HCPCS: 99282

== ENCOUNTER 2017-08-07 08:08 | Emergency (ER) | payer BC ==
[2017-08-07] MEDS ORDERED: Lidocaine 2% Viscous Solution 15 ML Cup PO ONE (08:25)
[2017-08-07] MEDS ORDERED: Benzocaine 20% Topical Spray UD MUCMEM ONE (08:25)
--- NOTE | 2017-08-07 08:29 | EDM.PDOC ---
ED HPI GENERAL MEDICAL PROBLEM - General Chief Complaint: ENT Problem Stated Complaint: ABSCESS TOOTH Time Seen by Provider: 08/07/17 08:13 Source of Information: Reports: Patient History Limitations: Reports: No Limitations - History of Present Illness INITIAL COMMENTS - FREE TEXT/NARRATIVE: History of present illness: []Patient's had 3 days of left upper dental pain that is worsening. He made an appointment with a dentist for the 5th, but cannot tolerate the pain at this point. Is any fevers or chills or drainage from his gums. He does feel the pain into his right maxillary sinus. Review of systems: As per history of present illness and below otherwise all systems reviewed and negative. Past medical history: As per history of present illness and as reviewed below otherwise noncontributory. Surgical history: As per history of present illness and as reviewed below otherwise noncontributory. Social history: No reported history of drug or alcohol abuse. Family history: As per history of present illness and as reviewed below otherwise noncontributory. Physical exam: General: Well developed, well nourished in NAD HEENT: Atraumatic, normocephalic, pupils reactive, negative for conjunctival pallor or scleral icterus, mucous membranes moist, throat clear, neck supple, nontender, trachea midline. Lungs: Clear to auscultation, breath sounds equal bilaterally, chest nontender. Heart: S1S2, regular, negative for clicks, rubs, or JVD. Abdomen: Soft, nondistended, nontender. Negative for masses or hepatosplenomegaly. Negative for costovertebral tenderness. Pelvis: Stable nontender. Genitourinary: Deferred. Rectal: Deferred. Extremities: Atraumatic, negative for cords or calf pain. Neurovascular unremarkable. Neuro: Awake, alert, oriented. Cranial nerves II through XII unremarkable. Cerebellum unremarkable. Motor and sensory unremarkable throughout. Exam nonfocal. Diagnostics: [] Therapeutics: []Dental balls Impression: []Dental abscess Plan: []Kasi Miranda, dental balls for pain, ibuprofen and Tylenol, follow-up with dentist swelling or fevers occur. Definitive disposition and diagnosis as appropriate pending reevaluation and review of above. left upper dental pain Pain Score (Numeric/FACES): 8 - Related Data Allergies Allergy/AdvReac Type Severity Reaction Status Date / Time No Known Allergies Allergy Verified 08/07/17 08:17 Home Meds: Home Meds Penicillin V Potassium 500 mg PO Q6HR #40 tab 08/07/17 [Rx] Past Medical History - Past Health History Medical/Surgical History: Denies Medical/Surgical History HEENT History: Reports: None Cardiovascular History: Reports: None Respiratory History: Reports: None Gastrointestinal History: Reports: None Genitourinary History: Reports: None Musculoskeletal History: Reports: None Neurological History: Reports: None Psychiatric History: Reports: None Endocrine/Metabolic History: Reports: None Hematologic History: Reports: None Immunologic History: Reports: None Oncologic (Cancer) History: Reports: None Dermatologic History: Reports: None - Infectious Disease History Infectious Disease History: Reports: Chicken Pox - Past Surgical History Head Surgeries/Procedures: Reports: None Social & Family History - Family History Family Medical History: Noncontributory - Tobacco Use Smoking Status *Q: Current Every Day Smoker Years of Tobacco use: 15 Packs/Tins Daily: 0.5 Used Tobacco, but Quit: Yes Month/Year Tobacco Last Used: 02/2017 Second Hand Smoke Exposure: No - Caffeine Use Caffeine Use: Reports: Coffee - Recreational Drug Use Recreational Drug Use: No Drug Use in Last 12 Months: No Recreational Drug Type: Reports: Marijuana/Hashish ED ROS ENT - Review of Systems Review Of Systems: See Below (See history of present illness) ED EXAM, ENT - Physical Exam Exam: See Below (See history of present illness) Course - Vital Signs Last Recorded V/S: Last Vital Signs Temp 96.8 F 08/07/17 08:17 Pulse 94 08/07/17 08:17 Resp 18 08/07/17 08:17 BP 138/86 08/07/17 08:17 Pulse Ox 97 08/07/17 08:17 - Orders/Labs/Meds Meds: Medications Discontinued Medications Generic Name Dose Route Start Last Admin Trade Name Freq PRN Reason Stop Dose Admin Benzocaine 2 each 08/07/17 08:25 Hurricaine One 20% MUCMEM 08/07/17 08:26 ONETIME ONE Lidocaine HCl 15 ml 08/07/17 08:25 Xylocaine 2% Viscous PO 08/07/17 08:26 ONETIME ONE Departure - Departure Time of Disposition: 08:28 Disposition: Home, Self-Care 01 Condition: Good Clinical Impression: Dental abscess - Discharge Information Prescriptions: Penicillin V Potassium 500 mg PO Q6HR #40 tab Referrals: PCP,None [Primary Care Provider] - Forms: ED Department Discharge Additional Instructions: The following information is given to patients seen in the emergency department who are being discharged to home. This information is to outline your options for follow-up care. We provide all patients seen in our emergency department with a follow-up referral. The need for follow-up, as well as the timing and circumstances, are variable depending upon the specifics of your emergency department visit. If you don't have a primary care physician on staff, we will provide you with a referral. We always advise you to contact your personal physician following an emergency department visit to inform them of the circumstance of the visit and for follow-up with them and/or the need for any referrals to a consulting specialist. The emergency department will also refer you to a specialist when appropriate. This referral assures that you have the opportunity for follow-up care with a specialist. All of these measure are taken in an effort to provide you with optimal care, which includes your follow-up. Under all circumstances we always encourage you to contact your private physician who remains a resource for coordinating your care. When calling for follow-up care, please make the office aware that this follow-up is from your recent emergency room visit. If for any reason you are refused follow-up, please contact the [facility] Emergency Department at and asked to speak to the emergency department charge nurse. Nicola-Katheryn K, anesthetic dental balls for pain and also use Tylenol Motrin as needed follow-up with a dentist [place]. [facility] Primary [facility] [address] [place] [phone]
[2017-08-07 09:10] VITALS: BP 128/82
== END 2017-08-07 08:45 | disposition home or self-care (01) ==
LOC: MW.ED 08:08
DX: K04.7 Periapical abscess without sinus (principal); F17.210 Nicotine dependence, cigarettes, uncomplicated
CPT/HCPCS: 99282; A9270; 99283

== ENCOUNTER 2017-08-09 00:16 | Emergency (ER) | payer BC ==
--- NOTE | 2017-08-09 00:43 | EDM.PDOC ---
ED HPI GENERAL MEDICAL PROBLEM - General Chief Complaint: ENT Problem Stated Complaint: ABCESSED TOOTH Time Seen by Provider: 08/09/17 00:31 - History of Present Illness INITIAL COMMENTS - FREE TEXT/NARRATIVE: HISTORY AND PHYSICAL: History of present illness: The patient is a 27-year-old male with no stated medical history who was seen here 2 days ago for dental pain at the right upper to the area where there are multiple tooth problems and he was placed on penicillin and given dental balls. The patient has an appointment with a dentist day after tomorrow but represented nights and the dental balls are not working and he is in a lot of pain. He says the pain is radiating to his sinuses for head and the back of his head. He's had no nausea vomiting fevers chills or oropharyngeal pain other than the dental pain. Review of systems: As per history of present illness and below otherwise all systems reviewed and negative. Past medical history: As per history of present illness and as reviewed below otherwise noncontributory. Surgical history: As per history of present illness and as reviewed below otherwise noncontributory. Social history: No reported history of drug or alcohol abuse. Family history: As per history of present illness and as reviewed below otherwise noncontributory. Physical exam: HEENT: Atraumatic, normocephalic, pupils reactive, negative for conjunctival pallor or scleral icterus, mucous membranes moist, throat clear, neck supple, nontender, trachea midline. There are multiple areas of dental disease in the mouth the most noteworthy is at the left upper gumline where teeth 12 through 15 all have caries decay and gum swelling without fluctuance. There is no soft tissue swelling of the face and no cervical adenopathy or nuchal rigidity. Lungs: Clear to auscultation, breath sounds equal bilaterally, chest nontender. Heart: S1S2, regular rate and rhythm no overt murmurs Abdomen: Soft, nondistended, nontender. NABS Pelvis: Deferred Genitourinary: Deferred. Rectal: Deferred. Extremities: Atraumatic, negative for cords or calf pain. Neurovascular unremarkable. Neuro: Awake, alert, oriented. Cranial nerves II through XII unremarkable. Cerebellum unremarkable. Motor and sensory unremarkable throughout. Exam nonfocal. Diagnostics: [] Therapeutics: [] I discussed with the patient continuing his penicillin and using the dental balls when he needs to be out and about or driving a car and I will give him some [place] via [facility] until he can make his appointment today after tomorrow. Impression: Dental pain/infection Definitive disposition and diagnosis as appropriate pending reevaluation and review of above. dental pain Pain Score (Numeric/FACES): 10 - Related Data Allergies Allergy/AdvReac Type Severity Reaction Status Date / Time No Known Allergies Allergy Verified 08/09/17 00:34 Home Meds: Home Meds Penicillin V Potassium 500 mg PO Q6HR #40 tab 08/07/17 [Rx] Past Medical History - Past Health History Medical/Surgical History: Denies Medical/Surgical History HEENT History: Reports: None Cardiovascular History: Reports: None Respiratory History: Reports: None Gastrointestinal History: Reports: None Genitourinary History: Reports: None Musculoskeletal History: Reports: None Neurological History: Reports: None Psychiatric History: Reports: None Endocrine/Metabolic History: Reports: None Hematologic History: Reports: None Immunologic History: Reports: None Oncologic (Cancer) History: Reports: None Dermatologic History: Reports: None - Infectious Disease History Infectious Disease History: Reports: Chicken Pox - Past Surgical History Head Surgeries/Procedures: Reports: None Social & Family History - Family History Family Medical History: Noncontributory - Tobacco Use Smoking Status *Q: Current Every Day Smoker Years of Tobacco use: 15 Packs/Tins Daily: 0.5 Used Tobacco, but Quit: Yes Month/Year Tobacco Last Used: 02/2017 Second Hand Smoke Exposure: No - Caffeine Use Caffeine Use: Reports: Coffee - Recreational Drug Use Recreational Drug Use: No Drug Use in Last 12 Months: No Recreational Drug Type: Reports: Marijuana/Hashish ED ROS GENERAL - Review of Systems Review Of Systems: ROS reveals no pertinent complaints other than HPI. ED EXAM, GENERAL - Physical Exam Exam: See Below (See dictation) Course - Vital Signs Last Recorded V/S: Last Vital Signs Temp 36.2 C 08/09/17 00:34 Pulse 95 08/09/17 00:34 Resp 18 08/09/17 00:34 BP 122/81 08/09/17 00:34 Pulse Ox 97 08/09/17 00:34 Departure - Departure Time of Disposition: 00:42 Disposition: Home, Self-Care 01 Condition: Good Clinical Impression: Pain, dental - Discharge Information Referrals: PCP,None [Primary Care Provider] - Additional Instructions: The following information is given to patients seen in the emergency department who are being discharged to home. This information is to outline your options for follow-up care. We provide all patients seen in our emergency department with a follow-up referral. The need for follow-up, as well as the timing and circumstances, are variable depending upon the specifics of your emergency department visit. If you don't have a primary care physician on staff, we will provide you with a referral. We always advise you to contact your personal physician following an emergency department visit to inform them of the circumstance of the visit and for follow-up with them and/or the need for any referrals to a consulting specialist. The emergency department will also refer you to a specialist when appropriate. This referral assures that you have the opportunity for followup care with a specialist. All of these measure are taken in an effort to provide you with optimal care, which includes your followup. Under all circumstances we always encourage you to contact your private physician who remains a resource for coordinating your care. When calling for followup care, please make the office aware that this follow-up is from your recent emergency room visit. If for any reason you are refused follow-up, please contact the [facility] emergency department at and ask to speak to the emergency department charge nurse. [facility] Primary care- Internal Medicine and Family [address] [address] Continue to take the antibiotic to have and use dental balls were given 2 days ago. These use the [place] your given the [employer] [facility] only when you're home and do not drive a car or go to work while taking this medication. He may also use over -the-counter ibuprofen. Return to ER as needed and as discussed and please keep your appointment with the dentist a day after tomorrow.
[2017-08-09 01:14] VITALS: BP 120/83
== END 2017-08-09 00:55 | disposition home or self-care (01) ==
LOC: MW.ED 00:16
DX: K04.7 Periapical abscess without sinus (principal); K02.9 Dental caries, unspecified; Z87.891 Personal history of nicotine dependence
CPT/HCPCS: 99282

== ENCOUNTER 2017-11-14 18:05 | Observation (INO) | payer BC ==
[2017-11-14] MEDS ORDERED: Sodium Chloride 0.9% 1,000 ML IV ONE (18:16)
[2017-11-14] MEDS ORDERED: Ondansetron 4 MG/2 ML SDV IVPUSH PRN (18:25)
[2017-11-14] MEDS ORDERED: Pantoprazole 40 MG Vial IVPUSH SCH (18:30)
--- NOTE | 2017-11-14 18:32 | PCM.HP ---
H&P History of Present Illness - General Admit Problem/Dx: Admission Diagnosis/Problem Admission Diagnosis/Problem GI bleed not requiring more than 4 units of blood in 24 hours, ICU, or surgery - History of Present Illness Initial Comments - Free Text/Narative: 27 yo male who presented to Dr. Mariano's clinic with three day history of blood in stool. He reported it start out as small bright red blood but then turned dark with green mucous. He denies any fevers, abdominal pain, diarrhea or constipation. He reports dizziness when standing. Dr. Mariano noted some tachycardia on standing orthostatic vital signs. - Related Data Allergies/Adverse Reactions: Allergies Allergy/AdvReac Type Severity Reaction Status Date / Time No Known Allergies Allergy Verified 08/09/17 00:34 Home Medications: Home Meds Ibuprofen 200 mg PO ASDIRECTED PRN 11/14/17 [History] Past Medical History - Past Health History Medical/Surgical History: Denies Medical/Surgical History HEENT History: Reports: None Cardiovascular History: Reports: None Respiratory History: Reports: None Gastrointestinal History: Reports: None Genitourinary History: Reports: None Musculoskeletal History: Reports: None Neurological History: Reports: Migraines Psychiatric History: Reports: None Endocrine/Metabolic History: Reports: None Hematologic History: Reports: None Immunologic History: Reports: None Oncologic (Cancer) History: Reports: None Dermatologic History: Reports: None - Infectious Disease History Infectious Disease History: Reports: Chicken Pox - Past Surgical History Head Surgeries/Procedures: Reports: None Social & Family History - Family History Family Medical History: Noncontributory - Tobacco Use Smoking Status *Q: Current Every Day Smoker Years of Tobacco use: 15 Packs/Tins Daily: 2 Used Tobacco, but Quit: No Second Hand Smoke Exposure: Yes - Caffeine Use Caffeine Use: Reports: Coffee, Energy Drinks, Soda - Recreational Drug Use Recreational Drug Use: No H&P Review of Systems - Review of Systems: Review Of Systems: ROS reveals no pertinent complaints other than HPI. Exam - Vital Signs Vital Signs: Last Vital Signs Temp 36.5 C 11/14/17 18:17 Pulse 80 11/14/17 18:17 Resp 18 11/14/17 18:17 BP 119/87 11/14/17 18:17 Pulse Ox 95 11/14/17 18:17 Weight: 139.207 kg - Exam General: Alert, Oriented HEENT: Conjunctiva Clear, Mucosa Moist & [place], Normal Nasal Septum Neck: Supple, Trachea Midline Lungs: Clear to Auscultation, Normal Respiratory Effort Cardiovascular: Regular Rate, Regular Rhythm GI/Abdominal Exam: Normal Bowel Sounds, Soft, Non-Tender, No Organomegaly Rectal (Males) Exam: Other (no blood or stool on rectal exam). No: Hemorrhoids Extremities: Normal Inspection, Normal Range of Motion, Non-Tender Skin: Warm, Dry, Intact Neurological: No: Focal Deficit - Patient Data Result Diagrams: 11/15/17 05:12 11/15/17 05:12 Problem List Initiated/Reviewed/Updated: Yes Orders Last 24hrs: Active Orders 24 hr Category Date Time Status Patient Status [ADT] Routine ADT 11/14/17 18:25 Ordered Oxygen Therapy [RC] PRN Care 11/14/17 18:25 Ordered VTE/DVT Education [RC] PER UNIT ROUTINE Care 11/14/17 18:25 Ordered Vital Signs [RC] Q4H Care 11/14/17 18:25 Ordered Nothing per Oral Now Diet [DIET] Diet 11/14/17 Breakfast Ordered BASIC METABOLIC PANEL,BMP [CHEM] AM Lab 11/15/17 05:11 Ordered CBC WITH AUTO DIFF [HEME] AM Lab 11/15/17 05:11 Ordered Hemoccult [OCCULT BLOOD DIAGNOSTIC] [OP] Routine Lab 11/14/17 18:24 Ordered Ondansetron [Zofran] Med 11/14/17 18:25 Ordered 4 mg IVPUSH Q4H PRN Pantoprazole [ProTONIX IV] Med 11/14/17 18:30 Active 40 mg IVPUSH Q24H Sodium Chloride 0.9% [Normal Saline] 1,000 ml Med 11/14/17 18:16 Active IV .Bolus Sodium Chloride 0.9% [Normal Saline] 1,000 ml Med 11/14/17 18:30 Active IV ASDIRECTED Resuscitation Status Routine Resus Stat 11/14/17 18:25 Ordered Medication Orders Sodium Chloride (Normal Saline) 1,000 mls @ 150 mls/hr IV ASDIRECTED TEODORA Sodium Chloride (Normal Saline) 1,000 mls @ 999 mls/hr IV .Bolus ONE Stop: 11/14/17 19:16 Pantoprazole Sodium (Protonix Iv) 40 mg IVPUSH Q24H TEODORA Assessment/Plan Comment:: 27 yo male admitted with lower GI bleed. Patient has received IV fluids and was monitored overnight. His Hgb has remained stable. Dr. Lucio was consulted and recommended discharge home to have follow up on Monday with EGD and colonoscopy.
[2017-11-14] MEDS: Nicotine 14 MG/24 Hr Patch TRDERM SCH (19:23)
[2017-11-14] MEDS: Sodium Chloride 0.9% 1,000 ML IV SCH (21:00)
[2017-11-15] MEDS: Sodium Chloride 0.9% 1,000 ML IV SCH (02:59)
[2017-11-15 06:00] LABS: CHLORIDE,CL 108 mmol/L (98-107); SODIUM,NA 142 mmol/L (136-148)
[2017-11-15] MEDS ORDERED: Dextrose 5%-0.45% NaCl 1,000 ML IV SCH (07:45)
--- NOTE | 2017-11-15 09:18 | PCM.SN ---
- Free Text/Narrative Note: pt seen, chart reviewed; rectal bleed or resolving gib, h/h no change in 12 hrs ; ok to start po diet, if taylor, home, outpatient endoscope can be arranged; thanks for the consult and care of this nice patient. Call if questions, dict [id number]
[2017-11-15] MEDS: Nicotine 14 MG/24 Hr Patch TRDERM SCH (10:07)
[2017-11-15 10:12] VITALS: BP 120/75
--- NOTE | 2017-11-15 16:39 | CONS ---
DATE OF CONSULTATION: 11/15/2017 DATE OF : 1990 PRIMARY CARE PHYSICIAN: None PCP Consult was called. The patient is seen shortly after. CONCERNING QUESTION: GI bleeding. HISTORY OF PRESENT ILLNESS: The patient is a 27-year-old obese gentleman, seen in primary care office complaining about a week of blood in the stool. The patient mentioned that first time was bright red blood per rectum and next time, it was little bit less at that time three days in a row, it was a little bit dusky. This morning, the patient has no complaint. Denied abdominal pain, syncope, lethargic, short of breath, chest pain, headache. In fact, the patient complained he is hungry, he wants to eat. Denied black tarry stool, but admitted to have weight loss in the past couple of months. PAST MEDICAL HISTORY: Significant for no diabetes, CO, CVA, or hypertension. PAST SURGICAL HISTORY: None. ALLERGIES: Please refer to nursing note for details. MEDICATIONS: Please refer to nursing note for details. FAMILY HISTORY: Noncontributory. REVIEW OF SYSTEMS: Same as history of present illness. PHYSICAL EXAMINATION: GENERAL: A very pleasant, nice gentleman, lying on bed, very comfortable, in no acute distress. HEENT: Normocephalic and atraumatic. Sclerae anicteric. LUNGS: Clear to auscultation. HEART: Regular rate and rhythm. ABDOMEN: Soft, nondistended. No pulsating. Tender midline abdominal structure. No surgical scar. No hernia appreciated. LABORATORY DATA: Laboratory values upon consultation, hemoglobin 15.2 yesterday, 15.1 today and the rest of the lab is within normal limits except liver function tests has mildly elevated transaminase. AST and ALT are both elevated. Alkaline phosphatase is normal. T bilirubin is 5.5. IMPRESSION: Gastrointestinal bleeding. Deny any systemic signs of significant bleeding or the patient is resolving. The patient would be alright to start oral diet and if tolerated home and seen in the office to arrange for outpatient endoscopy, and plan has been discussed with patient including esophagogastroduodenoscopy and colonoscopy. The patient concurred. Thanks for the consult and care of this nice patient. SHAZIA / ALBINO /[id number]
== END 2017-11-15 11:08 | disposition home or self-care (01) ==
LOC: UNDOADMOB 18:05 → MW.MS 18:05
PROVIDERS: ADMIT Internal Medicine; ATTEND Internal Medicine
DX: K92.2 Gastrointestinal hemorrhage, unspecified (principal); E66.9 Obesity, unspecified; F17.210 Nicotine dependence, cigarettes, uncomplicated
CPT/HCPCS: 36415; 80048; 82272; 85018; 85025; 86850; 86900; 86901; A9270; C9113; J2405; J7040; 96361; 96374; 96376; G0378

== ENCOUNTER 2017-11-17 11:33 | Day surgery (SDC) | payer BC ==
[~2017-11-17 11:33] MED LIST: Lidocaine 2% 5 ML SDV ONE; Midazolam 1 MG/ML 2 ML SDV ONE; Propofol 200 MG/20 ML SDV ONE; fentaNYL 100 MCG/2 ML SDV ONE
--- NOTE | 2017-11-17 12:21 | PCM.PREANE ---
Preanesthetic Assessment - Procedure Proposed Procedure: EGD and colonoscopy for recent hospitalization for a GI bleed - Anesthesia/Transfusion/Family Hx Anesthesia History: Prior Anesthesia Without Reaction Family History of Anesthesia Reaction: No Transfusion History: No Prior Transfusion(s) - Review of Systems Other: Reports: None - Physical Assessment NPO Status Date: 11/16/17 NPO Status Time: 22:00 Height: 6 ft 5 in Weight: 94.801 kg ASA Class: 2 Mental Status: Alert & Oriented x3 Airway Class: Mallampati = 1 Dentition: Reports: Normal Dentition, Broken Tooth/Teeth (left back side upper several) Thyro-Mental Finger Breadths: 3 Mouth Opening Finger Breadths: 3 ROM/Head Extension: Full - Allergies Allergies/Adverse Reactions: Allergies Allergy/AdvReac Type Severity Reaction Status Date / Time No Known Allergies Allergy Verified 11/15/17 13:45 - Acknowledgements Anesthesia Type Planned: MAC Pt an Appropriate Candidate for the Planned Anesthesia: Yes Alternatives and Risks of Anesthesia Discussed w Pt/Guardian: Yes Pt/Guardian Understands and Agrees with Anesthesia Plan: Yes PreAnesthesia Questionnaire - Past Health History Medical/Surgical History: Denies Medical/Surgical History HEENT History: Reports: None Cardiovascular History: Reports: None Respiratory History: Reports: None Gastrointestinal History: Reports: Other (See Below) Other Gastrointestinal History: occasional heartburn Genitourinary History: Reports: None Musculoskeletal History: Reports: Back Pain, Chronic Neurological History: Reports: Other (See Below) Other Neuro History: occasional dizzy spell, "feels like I am going to pass out " Psychiatric History: Reports: None Endocrine/Metabolic History: Reports: None Hematologic History: Reports: None Immunologic History: Reports: None Oncologic (Cancer) History: Reports: None Dermatologic History: Reports: None - Infectious Disease History Infectious Disease History: Reports: Chicken Pox - Past Surgical History Head Surgeries/Procedures: Reports: None Male Surgical History: Reports: Other (See Below) Other Male Surgeries/Procedures: circumcision - SUBSTANCE USE Smoking Status *Q: Current Every Day Smoker Tobacco Use Within Last Twelve Months: Cigarettes Recreational Drug Use History: No - HOME MEDS Home Medications: Home Meds . [No Known Home Meds] 11/15/17 [History] - CURRENT (IN HOUSE) MEDS Current Meds: Current Medications Discontinued Medications Fentanyl (Sublimaze) Confirm Administered Dose 100 mcg .ROUTE .STK-MED ONE Stop: 11/17/17 11:08 Lidocaine (Xylocaine-Mpf 2%) Confirm Administered Dose 5 ml .ROUTE .STK-MED ONE Stop: 11/17/17 11:08 Midazolam HCl (Versed 1 Mg/Ml) Confirm Administered Dose 2 mg .ROUTE .STK-MED ONE Stop: 11/17/17 11:08 Propofol (Diprivan 20 Ml) Confirm Administered Dose 400 mg .ROUTE .STK-MED ONE Stop: 11/17/17 11:08
[2017-11-17] MEDS ORDERED: Benzocaine 20% Topical Spray UD MUCMEM ONE (12:46)
[2017-11-17] MEDS ORDERED: Propofol 200 MG/20 ML SDV ONE (12:47)
--- NOTE | 2017-11-17 13:04 | PCM.OPNOTE ---
- General Post-Op/Procedure Note Date of Surgery/Procedure: 11/17/17 Findings: see dict [id number] Pre Op Diagnosis: BRBPR Post-Op Diagnosis: Same Anesthesia Technique: Moderate Sedation Primary Surgeon: Roman Lucio Pathology: egd bx Complications: None Condition: Good
--- NOTE | 2017-11-17 13:19 | PCM.POSTAN ---
POST ANESTHESIA ASSESSMENT - MENTAL STATUS Mental Status: Alert, Oriented - RESPIRATORY Respiratory Status: Respiratory Rate WNL, Airway Patent, O2 Saturation Stable - CARDIOVASCULAR CV Status: Pulse Rate WNL, Blood Pressure Stable - GASTROINTESTINAL GI Status: No Symptoms - PAIN Pain Score: 0 - POST OP HYDRATION Hydration Status: Adequate & Stable
--- NOTE | 2017-11-17 13:37 | PCM48HPAN ---
Post Anesthesia Note - EVALUATION WITHIN 48HRS OF ANESTHETIC Vital Signs in Normal Range: Yes Patient Participated in Evaluation: Yes Respiratory Function Stable: Yes Airway Patent: Yes Cardiovascular Function Stable: Yes Hydration Status Stable: Yes Pain Control Satisfactory: Yes Nausea and Vomiting Control Satisfactory: Yes Mental Status Recovered: Yes Resp Rate: 13
--- NOTE | 2017-11-17 13:49 | OR ---
SURGEON: Roman Lucio MD DATE OF PROCEDURE: 11/17/2017 PREOPERATIVE DIAGNOSIS: Bright red blood per rectum. POSTOPERATIVE DIAGNOSES: 1. Acid reflux. 2. Hemorrhoids. PROCEDURES PERFORMED: 1. EGD with biopsy. 2. Colonoscopy. PROCEDURE IN DETAIL: EGD: The patient was taken to the endoscopy room, and with the BRICK LOADER, Diprivan was administered. A well-lubricated EGD scope was gently inserted through the oropharynx, down the esophagus, passing through the gastroesophageal junction, into the stomach. The mucosa was examined upon the passage. Any etiology will be noted. Once in the stomach, we continued to advance to the distal antrum, passed through the pylorus into the second portion of the duodenum. Again, the mucosa was examined for any abnormality and etiology. The scope was then retrieved back to the stomach and then retroflexed to look at the fundus of the stomach. If a biopsy was indicated, we will biopsy the antrum, body, and gastroesophageal junction. The air will be sucked out while the scope is retrieved to reduce the patient's discomfort. The patient tolerated the procedure well. There were no intraoperative complications. Dr. Lucio was present through the whole procedure. Prior to surgery, a time-out had been called, the patient identified, procedure identified and antibiotic administered. The patient was taken to the endoscopy room. A time out was called, patient identified, and procedure identified. Diprivan was then administrated. Patient went from awake to sleep, hearing doctor talking or door closing is normal. Perineum inspection and digital examination were then performed. A well- lubricated colonoscope was gently inserted through the rectum, advanced past the rectosigmoid junction, the descending colon, splenic flexure, transverse colon, hepatic flexure, ascending colon, arrived to the cecum. Cecum was identified as dictated in the finding. Then the scope was carefully withdrawn while attention was paid to the mucosal surface for any abnormality. Air will be sucked out during the scope withdrawal. At the rectum, retroflexed to examine any rectal diseases, fistula or hemorrhoids. Patient tolerated procedure well. There were no intraoperative complications, and Dr. Lucio was present throughout the whole procedure. EGD FINDINGS: 1. The patient is easily sedated with BRICK LOADER and Diprivan. The patient is soundly snoring. 2. Oropharynx and proximal esophagus are free of disease and distal esophagus at 40 shows mild salmon color change consistent with acid reflux, very mild. Stomach rugae is normal in appearance. No ulcer, no blood, no food, no bile. Antrum was a little bit inflamed. Duodenum was grossly normal in appearance. Retroflexed look at the fundus of stomach, there is no hiatal hernia. Biopsy done at antrum, body, GE junction at 40 and sucked out of air as well with scope pulling out. COLONOSCOPIC FINDINGS: 1. The patient is easily sedated with BRICK LOADER and Diprivan, patient is soundly snoring. 2. Bowel prep is left to be desirable. Large amount of liquid stool coating the mucosa requiring constant irrigation. This is a compromised study. Cecum is indicated by ileocecal fold, one-to-one indentation, and appendiceal orifice. Light emittance is not observed. Mucosa examined upon scope pulling out with constant irrigation. The patient does not have diverticulosis, polyp, mass, growth, inflammation, stricture, ulceration, AV malformation, and the stool is yellow in color. There is no bleeding. Mild internal hemorrhoids, mild external hemorrhoids. The patient would benefit from repeat colonoscopy 10 years from today or if clinically indicated otherwise. SHAZIA / ALBINO /[id number]
[2017-11-17 18:06] VITALS: BP 109/67
== END 2017-11-17 14:00 | disposition home or self-care (01) ==
LOC: MW.SDS 11:33
PROVIDERS: ATTEND Surgery
DX: K62.5 Hemorrhage of anus and rectum (principal); K29.50 Unspecified chronic gastritis without bleeding; K20.9 Esophagitis, unspecified; K21.9 Gastro-esophageal reflux disease without esophagitis; K64.4 Residual hemorrhoidal skin tags; J45.909 Unspecified asthma, uncomplicated; K64.8 Other hemorrhoids; F17.210 Nicotine dependence, cigarettes, uncomplicated
CPT/HCPCS: 43239; 45378; A9270; J2250; J3010; J2704

== ENCOUNTER 2017-11-24 02:43 | Observation (INO) | payer BC ==
[2017-11-24] MEDS ORDERED: Sodium Chloride 0.9% 1,000 ML IV ONE (02:52)
[2017-11-24] MEDS ORDERED: Sodium Chloride 0.9% 2.5 ML Syringe FLUSH PRN (02:52)
--- NOTE | 2017-11-24 02:52 | EDM.PDOC ---
ED HPI GENERAL MEDICAL PROBLEM - General Chief Complaint: Chest Pain Stated Complaint: CHEST PAIN Time Seen by Provider: 11/24/17 02:45 Source of Information: Reports: Patient, EMS History Limitations: Reports: No Limitations - History of Present Illness INITIAL COMMENTS - FREE TEXT/NARRATIVE: HISTORY AND PHYSICAL: History of present illness: 27-year-old male visiting emergency department EMS with chief complaint of chest pain and shortness of breath starting at 1:30 AM this morning. Patient states that around 1:30 this morning he began to have left substernal chest pain with associated shortness of breath, diaphoresis, and nausea. He also states that he had some left arm tingling and finger numbness. Pain was relieved by nitroglycerin given by EMS in route to the hospital. Describes the pain as sharp "stabbing" and constant. Does admit to having a similar episode earlier today at which time he took nitroglycerin which relieved the pain. Pain comes on at rest. Patient did see a primary care provider Dr. Troy, who prescribed Chantix, albuterol, Prilosec, nitroglycerin. He has not taken any of the Cantix but did try the albuterol rescue inhaler when he had the chest pain earlier and it did not seem to help. He is scheduled for a stress test. States that he had a colonoscopy and EGD done approximately [address] Lucio secondary to some bright red blood per rectum. Only findings were as per patient , gastritis, and hemorrhoids. Patient states that he began to have these episodes of chest pain approximately 2 weeks ago. He denies any similar symptoms in the past. He is a smoker half pack a day 17 years. Seldom drinks alcohol and denies any other drug use. Currently the patient denies any chest pain, palpitations, shortness of breath, syncopal episodes, or focal neurologic deficits. Up until today he normally takes no medications and denies any allergies. Initial EKG showed normal sinus rhythm with a rate of [address] changes. Review of systems: As per history of present illness and below otherwise all systems reviewed and negative. Past medical history: As per history of present illness and as reviewed below otherwise noncontributory. Surgical history: As per history of present illness and as reviewed below otherwise noncontributory. Social history: No reported history of drug or alcohol abuse. Family history: As per history of present illness and as reviewed below otherwise noncontributory. Physical exam: HEENT: Atraumatic, normocephalic, pupils reactive, negative for conjunctival pallor or scleral icterus, mucous membranes moist, throat clear, neck supple, nontender, trachea midline. Lungs: Clear to auscultation, breath sounds equal bilaterally, chest nontender. Heart: S1S2, regular, negative for clicks, rubs, or JVD. Abdomen: Soft, nondistended, nontender. Negative for masses or hepatosplenomegaly. Negative for costovertebral tenderness. Pelvis: Stable nontender. Genitourinary: Deferred. Rectal: Deferred. Extremities: Atraumatic, negative for cords or calf pain. Neurovascular unremarkable. Neuro: Awake, alert, oriented. Cranial nerves II through XII unremarkable. Cerebellum unremarkable. Motor and sensory unremarkable throughout. Exam nonfocal. Diagnostics: CBC, CMP, troponin, INR, lipase, chest x-ray, EKG Therapeutics: 1 L normal saline 1, 2 mg IV morphine 1 Impression: Atypical chest pain Plan: CBC, CMP, troponin, INR, lipase, chest x-ray were all unremarkable. For the majority of the time in the emergency room patient was pain-free. As above patient was given nitroglycerin in route by EMS which alleviated his pain. Patient did start to have pain again before being admitted for observation and I did try 2 mg of morphine to see if this helped with the pain. I did talk to hospitalist Dr. Infante about this patient and she accepted him for observation for atypical chest pain on telemetry. Definitive disposition and diagnosis as appropriate pending reevaluation and review of above. chest area Pain Score (Numeric/FACES): 5 - Related Data Allergies Allergy/AdvReac Type Severity Reaction Status Date / Time No Known Allergies Allergy Verified 11/24/17 02:58 Home Meds: Home Meds Albuterol Sulfate [Proair Hfa] 1 puff INH ASDIRECTED PRN 11/24/17 [History] Nitroglycerin [Nitrostat] 1 tab SL ASDIRECTED PRN 11/24/17 [History] Omeprazole Magnesium [Prilosec Otc] 1 cap PO DAILY 11/24/17 [History] Varenicline Tartrate [Chantix] 0 mg PO DAILY 11/24/17 [History] Past Medical History - Past Health History Medical/Surgical History: Denies Medical/Surgical History HEENT History: Reports: None Cardiovascular History: Reports: None Respiratory History: Reports: None Gastrointestinal History: Reports: Other (See Below) Other Gastrointestinal History: occasional heartburn Genitourinary History: Reports: None Musculoskeletal History: Reports: Back Pain, Chronic Neurological History: Reports: Other (See Below) Other Neuro History: occasional dizzy spell, "feels like I am going to pass out " Psychiatric History: Reports: None Endocrine/Metabolic History: Reports: None Hematologic History: Reports: None Immunologic History: Reports: None Oncologic (Cancer) History: Reports: None Dermatologic History: Reports: None - Infectious Disease History Infectious Disease History: Reports: Chicken Pox - Past Surgical History Head Surgeries/Procedures: Reports: None Social & Family History - Family History Family Medical History: Noncontributory - Caffeine Use Caffeine Use: Reports: Coffee, Energy Drinks, Soda ED ROS GENERAL - Review of Systems Review Of Systems: ROS reveals no pertinent complaints other than HPI. ED EXAM, GENERAL - Physical Exam Exam: See Below Course - Vital Signs Last Recorded V/S: Last Vital Signs Temp 97.7 F 11/24/17 04:45 Pulse 83 11/24/17 04:45 Resp 18 11/24/17 04:45 BP 112/73 11/24/17 04:45 Pulse Ox 96 11/24/17 04:45 - Orders/Labs/Meds Orders: Active Orders 24 hr Category Date Time Status Admission Status [Patient Status] [ADT] Stat ADT 11/24/17 05:11 Active Cardiac Monitoring [RC] . DIRECTED Care 11/24/17 02:52 Active Cardiac Monitoring [RC] . DIRECTED Care 11/24/17 05:11 Active EKG Documentation Completion [RC] STAT Care 11/24/17 02:47 Active Oxygen Therapy [RC] ASDIRECTED Care 11/24/17 02:52 Active Pulse Oximetry [RC] ASDIRECTED Care 11/24/17 02:52 Active Chest 1V Frontal [CR] Stat Exams 11/24/17 02:52 Taken DRUG SCREEN, URINE [URCHEM] Stat Lab 11/24/17 04:18 Ordered UA W/MICROSCOPIC [URIN] Stat Lab 11/24/17 04:18 Ordered Morphine Med 11/24/17 05:20 Once 2 mg IVPUSH ONETIME ONE Sodium Chloride 0.9% [Saline Flush] Med 11/24/17 02:52 Active 2.5 ml FLUSH ASDIRECTED PRN Medication Orders Sodium Chloride (Saline Flush) 2.5 ml FLUSH ASDIRECTED PRN PRN Reason: Keep Vein Open Labs: Laboratory Tests 11/24/17 11/24/17 11/24/17 Range/Units 03:05 03:05 03:05 WBC 10.13 (4.0-11.0) K/uL RBC 4.63 (4.50-5.90) M/uL Hgb 14.7 (13.0-17.0) g/dL Hct 41.8 (38.0-50.0) % MCV 90.3 (80.0-98.0) fL MCH 31.7 (27.0-32.0) pg MCHC 35.2 (31.0-37.0) g/dL RDW Std Deviation 43.5 (28.0-62.0) fl RDW Coeff of Homa 13 (11.0-15.0) % Plt Count 227 (150-400) K/uL MPV 9.20 (7.40-12.00) fL Neut % (Auto) 52.0 (48.0-80.0) % Lymph % (Auto) 36.7 (16.0-40.0) % Moca % (Auto) 7.6 (0.0-15.0) % Eos % (Auto) 3.4 (0.0-7.0) % Baso % (Auto) 0.3 (0.0-1.5) % Neut # (Auto) 5.3 (1.4-5.7) K/uL Lymph # (Auto) 3.7 H (0.6-2.4) K/uL Moca # (Auto) 0.8 (0.0-0.8) K/uL Eos # (Auto) 0.3 (0.0-0.7) K/uL Baso # (Auto) 0.0 (0.0-0.1) K/uL Nucleated RBC % 0.0 /100WBC Nucleated RBCs # 0 K/uL INR 0.92 D-Dimer, Quantitative 0.23 (0.0-0.52) mg/LFEU Sodium 140 (136-148) mmol/L Potassium 3.6 (3.5-5.1) mmol/L Chloride 107 (98-107) mmol/L Carbon Dioxide 23.9 (21.0-32.0) mmol/L BUN 11 (7.0-18.0) mg/dL Creatinine 1.0 (0.8-1.3) mg/dL Est Cr Clr Drug Dosing 137.36 mL/min Estimated GFR (MDRD) > 60.0 ml/min Glucose 181 H (74-106) mg/dL Calcium 8.8 (8.5-10.1) mg/dL Total Bilirubin 0.1 L (0.2-1.0) mg/dL AST 31 (15-37) IU/L ALT 107 H (14-63) IU/L Alkaline Phosphatase 105 (46-116) U/L Troponin I < 0.050 (0.000-0.056) ng/mL Total Protein 7.0 (6.4-8.2) g/dL Albumin 3.6 (3.4-5.0) g/dL Globulin 3.4 (2.0-3.5) g/dL Albumin/Globulin Ratio 1.1 L (1.3-2.8) Lipase 118 (73-393) U/L Urine Color Urine Appearance Urine pH (5.0-8.0) Ur Specific [place] (1.001-1.035) Urine Protein (NEGATIVE) mg/dL Urine Glucose (UA) (NEGATIVE) mg/dL Urine Ketones (NEGATIVE) mg/dL Urine Occult Blood (NEGATIVE) Urine Nitrite (NEGATIVE) Urine Bilirubin (NEGATIVE) Urine Urobilinogen (<2.0) EU/dL Ur Leukocyte Esterase (NEGATIVE) Urine RBC (0-2/HPF) Urine WBC (0-5/HPF) Ur Epithelial Cells (NONE-FEW) Urine Bacteria (NEGATIVE) Urine Mucus (NONE-MOD) Urine Opiates Screen (NEGATIVE) Ur Oxycodone Screen (NEGATIVE) Urine Methadone Screen (NEGATIVE) Ur Barbiturates Screen (NEGATIVE) Ur Phencyclidine Scrn (NEGATIVE) Ur Amphetamine Screen (NEGATIVE) U Methamphetamines Scrn (NEGATIVE) U Benzodiazepines Scrn (NEGATIVE) U Cocaine Metab Screen (NEGATIVE) U Marijuana (THC) Screen (NEGATIVE) 11/24/17 11/24/17 Range/Units 04:18 04:18 WBC (4.0-11.0) K/uL RBC (4.50-5.90) M/uL Hgb (13.0-17.0) g/dL Hct (38.0-50.0) % MCV (80.0-98.0) fL MCH (27.0-32.0) pg MCHC (31.0-37.0) g/dL RDW Std Deviation (28.0-62.0) fl RDW Coeff of Homa (11.0-15.0) % Plt Count (150-400) K/uL MPV (7.40-12.00) fL Neut % (Auto) (48.0-80.0) % Lymph % (Auto) (16.0-40.0) % Moca % (Auto) (0.0-15.0) % Eos % (Auto) (0.0-7.0) % Baso % (Auto) (0.0-1.5) % Neut # (Auto) (1.4-5.7) K/uL Lymph # (Auto) (0.6-2.4) K/uL Moca # (Auto) (0.0-0.8) K/uL Eos # (Auto) (0.0-0.7) K/uL Baso # (Auto) (0.0-0.1) K/uL Nucleated RBC % /100WBC Nucleated RBCs # K/uL INR D-Dimer, Quantitative (0.0-0.52) mg/LFEU Sodium (136-148) mmol/L Potassium (3.5-5.1) mmol/L Chloride (98-107) mmol/L Carbon Dioxide (21.0-32.0) mmol/L BUN (7.0-18.0) mg/dL Creatinine (0.8-1.3) mg/dL Est Cr Clr Drug Dosing mL/min Estimated GFR (MDRD) ml/min Glucose (74-106) mg/dL Calcium (8.5-10.1) mg/dL Total Bilirubin (0.2-1.0) mg/dL AST (15-37) IU/L ALT (14-63) IU/L Alkaline Phosphatase (46-116) U/L Troponin I (0.000-0.056) ng/mL Total Protein (6.4-8.2) g/dL Albumin (3.4-5.0) g/dL Globulin (2.0-3.5) g/dL Albumin/Globulin Ratio (1.3-2.8) Lipase (73-393) U/L Urine Color YELLOW Urine Appearance CLEAR Urine pH 6.0 (5.0-8.0) Ur Specific [place] 1.025 (1.001-1.035) Urine Protein NEGATIVE (NEGATIVE) mg/dL Urine Glucose (UA) 500 H (NEGATIVE) mg/dL Urine Ketones NEGATIVE (NEGATIVE) mg/dL Urine Occult Blood SMALL H (NEGATIVE) Urine Nitrite NEGATIVE (NEGATIVE) Urine Bilirubin NEGATIVE (NEGATIVE) Urine Urobilinogen 0.2 (<2.0) EU/dL Ur Leukocyte Esterase NEGATIVE (NEGATIVE) Urine RBC 0-1 (0-2/HPF) Urine WBC 0-1 (0-5/HPF) Ur Epithelial Cells RARE (NONE-FEW) Urine Bacteria RARE (NEGATIVE) Urine Mucus LIGHT (NONE-MOD) Urine Opiates Screen NEGATIVE (NEGATIVE) Ur Oxycodone Screen NEGATIVE (NEGATIVE) Urine Methadone Screen NEGATIVE (NEGATIVE) Ur Barbiturates Screen NEGATIVE (NEGATIVE) Ur Phencyclidine Scrn NEGATIVE (NEGATIVE) Ur Amphetamine Screen NEGATIVE (NEGATIVE) U Methamphetamines Scrn NEGATIVE (NEGATIVE) U Benzodiazepines Scrn NEGATIVE (NEGATIVE) U Cocaine Metab Screen NEGATIVE (NEGATIVE) U Marijuana (THC) Screen NEGATIVE (NEGATIVE) Meds: Medications Generic Name Dose Route Start Last Admin Trade Name Freq PRN Reason Stop Dose Admin Sodium Chloride 2.5 ml 11/24/17 02:52 Saline Flush FLUSH ASDIRECTED PRN Keep Vein Open Discontinued Medications Generic Name Dose Route Start Last Admin Trade Name Freq PRN Reason Stop Dose Admin Sodium Chloride 1,000 mls @ 999 mls/hr 11/24/17 02:52 11/24/17 02:56 Normal Saline IV 11/24/17 03:52 999 mls/hr .Bolus ONE Administration Departure - Departure Time of Disposition: 05:23 Disposition: Admitted As Inpatient 64 Condition: Fair Clinical Impression: Atypical chest pain - Discharge Information Referrals: PCP,None [Primary Care Provider] - Forms: ED Department Discharge - My Orders Last 24 Hours: My Active Orders 11/24/17 02:47 EKG Documentation Completion [RC] STAT 11/24/17 02:52 Cardiac Monitoring [RC] . DIRECTED Oxygen Therapy [RC] ASDIRECTED Pulse Oximetry [RC] ASDIRECTED Chest 1V Frontal [CR] Stat Sodium Chloride 0.9% [Saline Flush] 2.5 ml FLUSH ASDIRECTED PRN 11/24/17 04:18 DRUG SCREEN, URINE [URCHEM] Stat UA W/MICROSCOPIC [URIN] Stat 11/24/17 05:11 Admission Status [Patient Status] [ADT] Stat Cardiac Monitoring [RC] . DIRECTED 11/24/17 05:20 Morphine 2 mg IVPUSH ONETIME ONE - Assessment/Plan Last 24 Hours: My Active Orders 11/24/17 02:47 EKG Documentation Completion [RC] STAT 11/24/17 02:52 Cardiac Monitoring [RC] . DIRECTED Oxygen Therapy [RC] ASDIRECTED Pulse Oximetry [RC] ASDIRECTED Chest 1V Frontal [CR] Stat Sodium Chloride 0.9% [Saline Flush] 2.5 ml FLUSH ASDIRECTED PRN 11/24/17 04:18 DRUG SCREEN, URINE [URCHEM] Stat UA W/MICROSCOPIC [URIN] Stat 11/24/17 05:11 Admission Status [Patient Status] [ADT] Stat Cardiac Monitoring [RC] . DIRECTED 11/24/17 05:20 Morphine 2 mg IVPUSH ONETIME ONE
[2017-11-24 03:39] LABS: CHLORIDE,CL 107 mmol/L (98-107); SODIUM,NA 140 mmol/L (136-148)
[2017-11-24] MEDS ORDERED: Morphine 2 MG/ML Syringe IVPUSH ONE (05:20)
[2017-11-24] MEDS ORDERED: Acetaminophen 325 MG Tab PO PRN (14:39)
[2017-11-24] MEDS ORDERED: Albuterol 8 GM Inhaler INH PRN (14:41)
[2017-11-24] MEDS: Nitroglycerin 0.4 MG Tab.SL SL PRN ×2 (14:43→17:07)
[2017-11-24] MEDS ORDERED: Cyclobenzaprine 10 MG Tab PO PRN (17:24)
--- NOTE | 2017-11-24 17:27 | CR ---
MEXAM DATE: 11/24/17 PATIENT'S AGE: 27 Patient: SANDHYA NEVAREZ Facility: [place], [place] Site . Site : 1990 Study: XRay Chest [id number]/[id number] 3:25:17 AM Ordering Physician: Michael Mojica Final Report: INDICATION: Chest pain, shortness of breath. TECHNIQUE: Chest radiograph 1 view COMPARISON: 01/03/2017. FINDINGS: Cardiovascular and mediastinum: The heart silhouette is normal in size and morphology. The mediastinum is normal in appearance. Lungs and pleural spaces: Both lungs are unremarkable in appearance. No sign of pleural effusion seen. No pneumothorax is identified. Bones and soft tissues: No significant findings. IMPRESSION: 1. No acute cardiopulmonary disease is seen. Dictated by Howard Mcfadden MD @ 11/24/2017 3:27:51 AM Dictated by: Howard Mcfadden MD @ 11/24/2017 03:27:55 (Electronic Signature) Report Signed by Proxy. MTDD
[2017-11-24] MEDS: Naproxen 500 MG Tab PO SCH ×2 (18:38→20:50)
[2017-11-24 20:48] VITALS: BP 132/82
--- NOTE | 2017-11-24 22:46 | PCM.SN ---
- Free Text/Narrative Note: [id number]
--- NOTE | 2017-11-25 00:20 | HP ---
DATE OF : 1990 PRIMARY CARE PHYSICIAN: None PCP HISTORY OF PRESENT ILLNESS: The patient is a 27-year-old man, presented to emergency room because of chest pain that started around 1:30 a.m. while he was sleeping. The pain was rated as 7/10, was constant, was localized on the left side of the chest, lasted for more than 40 minutes, and did not change with breathing. No tenderness to palpation. Not positional and prompted the patient to call 911. The patient's pain subsided with nitroglycerin sublingual. The patient's pain radiated in the left arm. The patient states that for the past 3 weeks, he started having chest pain that initially was about 15 minutes and progressively started getting longer duration of time, and his chest pain subsided with nitroglycerin. The patient recently had an EGD and colonoscopy because of bleeding per rectum and his bleeding was determined to be secondary to hemorrhoids and he also was found to have gastritis. The patient is a smoker. He says he smokes for the past 17 years and is drinking alcohol rarely and no drug use. His chest pain was also associated with shortness of breath. The patient says he gets chest pain almost every other day. The patient was scheduled by Dr. Mcdonough to have stress test. PAST MEDICAL HISTORY: Hemorrhoids, bleeding per rectum, gastritis, obesity, and also asthma with exertion. PAST SURGICAL HISTORY: None. He had a colonoscopy on Monday and EGD and was found to have hemorrhoids. ALLERGIES: The patient does not have any known drug allergies. SOCIAL HISTORY: He smokes half a pack per day for the past 17 years. He works in [employer]. Alcohol use rarely and no drug use.Denies drug use FAMILY HISTORY: His mother had PFO and 2 TIAs and no family history of [place] before the age of 55. His father, brother, and sister are healthy. REVIEW OF SYSTEMS: The patient also states he had lightheadedness with the chest pain. VITAL SIGNS: On admission, his temperature was 98.3, pulse 97, blood pressure 122/83, respiratory rate 16, and oxygen saturation 96%. LABORATORY DATA: At admission, WBC 10.13, hemoglobin 14.7, hematocrit 41.8, and platelet count is 227. INR 0.92. D-dimer 0.23. Sodium 140, potassium 3.6, chloride 107, CO2 of 23.9, BUN 11, and creatinine 1. Estimated creatinine clearance 137, and glucose 181. Hemoglobin A1c 5.9. Calcium 8.8, total bilirubin 0.1, AST 31, ALT 107, alkaline phosphatase 105. Troponin less than 0.05. Total protein 7, albumin 3.6, globulin 3.4, triglycerides are 186, cholesterol 158, LDL 93, VLDL 37, HDL 28, and lipase 118. Urinalysis shows urine color yellow, appearance clear, urine pH 6, urine protein negative, urine glucose 500, urine ketones negative, urine occult blood small, urine nitrites negative, urine bilirubin negative, urobilinogen 0.2, urine leukocyte esterase negative, urine rbc's 0 to 1, urine wbc's 0 to 1, urine epithelial cells rare, urine bacteria rare, urine mucus light. Urine toxicology was negative. EKG: NSR , nl axis , no st t changes Chest x-ray done in the emergency room shows no acute findings. PHYSICAL EXAMINATION: Head: atraumatic , normocephalic Pupil equally reactive to light Neck is supple , no thyromegaly , no lymphadenopathy Heart :S1 , S2 RRR, No M Lungs are clear to auscultation b/l Abd: soft , NT , ND , positive bs Ext: no edema Neurologic : no focal neurologic def. ASSESSMENT AND PLAN: Chest pain, rule out acute coronary syndrome. We will admit the patient to telemetry. We will follow up 3 sets of cardiac enzymes. The patient received aspirin 325 from EMS, and we will give the patient nitroglycerin 0.4 mg sublingual q.5 minutes p.r.n. for chest pain. We will order cardiac echo and CT angiography. We will call Cardiology consult. For tobacco abuse, the patient was advised to stop smoking. For the gastritis, the patient will be continue with omeprazole 20 mg p.o. b.i.d. DISCHARGE SUMMARY: The patient had 3 sets of troponin negative. He had an episode of chest pain radiating to the left arm while on the floor for about 20 minutes and he was given nitroglycerin and his chest pain subsided. I have discussed the patient's case with the skull grinder, who also reviewed the echocardiogram, which was normal. Echocardiogram report was received and showed ejection fraction of 55% and no significant abnormal findings. The patient was given a followup appointment with Cardiology on Monday. His CT angiography was within normal limits. No blood clots. The patient's case was discussed with the skull grinder, Dr. Tsai. The patient was discharged home , with the agreement of Cardiology with cyclobenzaprine 10 mg p.o. 3 times a day and nitroglycerin 0.4 mg sublingual q.5 minutes p.r.n. for chest pain. In the hospital, he had a repeat EKG, which was also normal. There were no events on cardiac telemetry. The patient was advised to lose weight and stop smoking DIET: Regular diet. ACTIVITIES: Discharged as tolerated. FOLLOWUP: The patient's followup appointments, follow up with PCP, Dr. Mcdonough, and follow up with Cardiology on Monday. DIAGNOSIS AT DISCHARGE: Chest pain, rule out acute coronary syndrome. Because his chest pain responds to nitroglycerin, the patient should have a possible workup for esophageal spasm , too ANTPINOT / ALBINO /[id number]
[2017-11-25] MEDS ORDERED: Omeprazole 20 MG Cap.CR PO SCH (09:00)
--- NOTE | 2017-11-27 08:58 | CT ---
EXAM DATE: 11/24/17 PATIENT'S AGE: 27 Patient: SANDHYA NEVAREZ Facility: [place], [place] Site . Site : 1990 Study: CT Chest Angio [id number]/2018 6:06:05 PM Ordering Physician: Dallas De La O Final Report: INDICATION: chest pain TECHNIQUE: CT chest pulmonary angiogram acquired with IV contrast. Evaluation degraded by motion artifact. 100ml Isovue 370 COMPARISON: None FINDINGS: Cardiovascular structures: Normal vascular enhancement of the pulmonary arteries , no sign of pulmonary embolism. Heart size is normal. No sign of aneurysm or dissection in the thoracic aorta. Mediastinum and rick: No mass or adenopathy. Lungs: No focal consolidation, pleural effusion, or pneumothorax. Chest wall and axilla: No mass or adenopathy. Bones: No significant findings. Upper abdomen: Unremarkable. IMPRESSION: 1. No evidence of pulmonary embolism. 2. No acute cardiopulmonary disease. Dictated by Rolando Suero MD @ 11/24/2017 8:18:33 PM Please note that all CT scans at this facility use dose modulation, iterative reconstruction, and/or weight-based dosing when appropriate to reduce radiation dose to as low as reasonably achievable. Dictated by: Rolando Suero MD @ 11/24/2017 20:19:12 (Electronic Signature) Report Signed by Proxy. [facility]
--- NOTE | 2017-11-27 16:22 | ECHO ---
EXAM DATE: 11/24/17 PATIENT'S AGE: 27 The echocardiogram report can be seen in this patient's EMR (Electronic Medical Record) in the Reports section. The report has also been scanned into PACs. LILLIE
== END 2017-11-24 22:20 | disposition home or self-care (01) ==
LOC: MW.ED 02:43 → MW.MS 05:11 → MW.ED 05:30
PROVIDERS: ADMIT Internal Medicine; ATTEND Internal Medicine
DX: R07.89 Other chest pain (principal); F17.210 Nicotine dependence, cigarettes, uncomplicated; E66.9 Obesity, unspecified; K29.70 Gastritis, unspecified, without bleeding; I34.0 Nonrheumatic mitral (valve) insufficiency; I07.1 Rheumatic tricuspid insufficiency; Z79.899 Other long term (current) drug therapy; Z86.73 Personal history of transient ischemic attack (TIA), and cerebral infarction without residual deficits
CPT/HCPCS: 36415; 71045; 71045-26; 71275; 71275-26; 80053; 80061; 80305-QW; 81001; 83036; 83690; 84484; 85025; 85379; 85610; 93005; 93306; 96361; 96374; 99285-25; A9270-GY; G0378; J2270; J7040